=== PATIENT | female | born 1950 | race African-American/Black ===

== ENCOUNTER 2017-11-02 11:07 | Inpatient (IN) | payer OTHER, BC ==
[2017-11-02 11:26] VITALS: BMI 30.2
--- NOTE | 2017-11-02 11:51 | PDOC ---
History of Present Illness - General Chief Complaint: Hemoptysis Stated Complaint: COUGH, WHEEZING Time Seen by Provider: 11/02/17 11:50 - History of Present Illness Initial Comments: 11/02/17 12:18 67yo woman, active smoker, and PMH of hypertension who presents with several weeks of productive cough which for the last 3 reports blood streaked sputum and fever. She has had generalized malaise and weakness, and temperature yesterday was 102. She hasn't taken any medications for her symptoms or fever. Reports grandchildren sick early in the month with a "cold". No recent antibiotic use or hospitalization. PCP: Dr. Isaak Younger Past History - Past Medical History Allergies/Adverse Reactions: Allergies Allergy/AdvReac Type Severity Reaction Status Date / Time Penicillins Allergy Severe Difficulty Verified 11/02/17 11:22 Breathing Home Medications: Ambulatory Orders Amlodipine Bes/Olmesartan Med [Coni 10-20 mg Tablet] 1 each PO DAILY 04/10/13 COPD: No HTN: Yes - Suicide/Smoking/Psychosocial Hx Smoking Status: Yes Smoking History: Current every day smoker Have you smoked in the past 12 months: Yes Number of Cigarettes Smoked Daily: 10 Cigars Per Day: 0 Information on smoking cessation initiated: No Review of Systems - Review of Systems Constitutional: Yes: Fever, Malaise, Weakness HEENTM: No: Throat Pain Respiratory: Yes: Cough, Hemoptysis Cardiac (ROS): No: Chest Pain, Lightheadedness : No: Dysuria All Other Systems: Reviewed and Negative *Physical Exam - Vital Signs Last Vital Signs Temp Pulse Resp BP Pulse Ox 100.8 F H 127 H 21 108/55 95 11/02/17 11:22 11/02/17 11:22 11/02/17 11:22 11/02/17 11:22 11/02/17 11:22 - Physical Exam General Appearance: Yes: Appropriately Dressed, Mild Distress HEENT: positive: Normal ENT Inspection Neck: positive: Supple Respiratory/Chest: positive: Decreased Breath Sounds (at Left base) Cardiovascular: positive: Regular Rate, S1, S2, Tachycardia. negative: JVD Gastrointestinal/Abdominal: positive: Normal Bowel Sounds, Soft. negative: Tender Neurologic: positive: Fully Oriented, Alert Heart Score/ECG Review - ECG Impressions Comment:: 11/02/17 14:34 EKG: sinus tachycardia, rate 114, LAD, possible LAE, normal intervals (QTc 443) ED Treatment Course - LABORATORY CBC & Chemistry Diagram: 11/06/17 05:05 11/06/17 05:05 Medical Decision Making - Medical Decision Making 11/02/17 12:24 67yo woman who is an active smoker and presents with hemoptysis, fever, and generalized weakness concerning for sepsis 2/2 to PNA. Her presenting vitals are are fever to 100.8 and tachycardia. Will initiate Adult sepsis work-up and give 1g IV Tylenol for fever. 11/02/17 14:05 Patient has leukocytosis and lactic acidosis to 2.7. CXR revealed prominent L lower lobe consolidation. Will continue to hydrate, and repeat lactatic acid. Patient started on Levoquin for CAP treatment (has Penicillin allergy). Will contact Dr. Thao to admit patient. 11/02/17 14:41 Case d/w Dr. Thao. Patient will be admitted to M/S Patient noted to be satting at 79% on RA; O2 therapy increased to 4L NC. Will give duo nebs and reassess pSaO2. 11/02/17 16:11 Patient feel her breathing has improved. She's satting at 85% on 5L NC. Will give an additional 2x duo neb treatments. 11/06/17 09:42 *DC/Admit/Observation/Transfer Diagnosis at time of Disposition: Severe sepsis, Acute respiratory failure with hypoxemia CAP (community acquired pneumonia) Qualifiers: Laterality: left - Discharge Dispostion Condition at time of disposition: Stable Admit: Yes Decision to Admit order Date/Time: 11/02/17 14:32 Will be admitted by Dr. Thao to M/S - Referrals - Patient Instructions - Post Discharge Activity
[2017-11-02] MEDS ORDERED: SODIUM CHLORIDE 0.9% 1000 ML INFUS.BAG IV PRN (12:05)
[2017-11-02] MEDS ORDERED: SODIUM CHLORIDE 1,000 ML IV STA ×2 (12:05→16:24)
[2017-11-02] MEDS ORDERED: ACETAMINOPHEN 1000 MG/100 ML VIAL (NON FORMULARY) IVPB ONE (12:06)
[2017-11-02] MEDS ORDERED: ACETAMINOPHEN INJECTION 100 ML IVPB ONE (12:51)
[2017-11-02 12:53] LABS: VENOUS PH 7.43 (7.32-7.42)
[2017-11-02 12:54] LABS: VENOUS PC02 45.7 mmHg (38-52); VENOUS PO2 33.3 mmHg (28-48)
[2017-11-02 12:55] LABS: BASO % 0.2 % (0-2.0); EOS % 0.1 % (0-4.5); HEMATOCRIT 46.9 % (32.4-45.2); HEMOGLOBIN 15.2 GM/dL (10.7-15.3); LYMPH % 3.6 % (8-40); MCH 32.2 pg (25.7-33.7); MCHC 32.4 g/dl (32.0-36.0); MEAN CELL VOLUME 99.2 fl (80-96); MONO % 1.8 % (3.8-10.2); NEUT % 94.3 % (42.8-82.8); PLATELET COUNT 165 K/MM3 (134-434); RBC 4.73 M/mm3 (3.60-5.2); RDW 14.8 % (11.6-15.6); WHITE BLOOD COUNT 10.4 K/mm3 (4.0-10.0)
[2017-11-02 13:22] LABS: INR 1.4 (0.82-1.09); PROTHROMBIN TIME (PATIENT) 15.8 SEC (9.98-11.88)
--- NOTE | 2017-11-02 13:49 | PDOC ---
Attending Attestation - Resident Resident Name: Rakel Christopher - ED Attending Attestation I have performed the following: I have examined & evaluated the patient, The case was reviewed & discussed with the resident, I agree w/resident's findings & plan, Exceptions are as noted - HPI HPI: 11/02/17 13:43 67-year-old female with Hypertension presents with malaise and cough and worsening weakness. Febrile at triage. - Physicial Exam PE: 11/02/17 13:44 Fever, tachycardia, tachypnea decreased BS left base abd soft no edema neuro nonfocal - Critical Care Time Total Critical Care Time: 30 Critical Care Statement: The care of this patient involved high complexity decision making to prevent further life threatening deterioration of the patient 's condition and/or to evaluate & treat vital organ system(s) failure or risk of failure. - Medical Decision Making 11/02/17 13:48 Patient seen and evaluated with the resident. I agree with the overall evaluation, assessment, and management with the following summary of visit: 67-year-old female with history of hypertension and smoking presents with worsening malaise and cough with fever for 3 days. Febrile, tachycardic, tachypneic at triage. Decreased breath sounds at the left base concerning for pneumonia. Sepsis protocol initiated Tylenol for fever IV antibiotics for community-acquired pneumonia Admission Heart Score/ECG Review #1 ECG reviewed & interpreted by me at: 13:38 General ECG Interpretation: Sinus Rhythm (tachycardia at 114,), Normal Intervals , No acute ischemic changes (PRWP, inferior q waves, no acute st changes)
--- NOTE | 2017-11-02 14:35 | EKG ---
Test Reason : Blood Pressure : / mmHG Vent. Rate : 114 BPM Atrial Rate : 114 BPM P-R Int : 170 ms QRS Dur : 074 ms QT Int : 322 ms P-R-T Axes : 037 -87 047 degrees QTc Int : 443 ms SINUS TACHYCARDIA POSSIBLE LEFT ATRIAL ENLARGEMENT LEFT AXIS DEVIATION INFERIOR INFARCT , AGE UNDETERMINED ANTEROSEPTAL INFARCT (CITED ON OR BEFORE 24-JAN-2002) ABNORMAL ECG WHEN COMPARED WITH ECG OF 10-APR-2013 13:10, INFERIOR INFARCT IS NOW PRESENT QUESTIONABLE CHANGE IN INITIAL FORCES OF ANTERIOR LEADS Confirmed by CARLITO METCALF, HAMLET ([id number]) on 11/02/2017 2:35:04 PM Referred By: Confirmed By:HAMLET ESTEBAN MD
[2017-11-02] MEDS ORDERED: ALBUTEROL SO4 2.5/IPRATROPIUM 0.5 INH SOL 3 ML VIAL.NEB. NEB ONE ×2 (14:36→16:28)
[2017-11-02] MEDS: ALBUTEROL SO4 2.5/IPRATROPIUM 0.5 INH SOL 3 ML VIAL.NEB. NEB SCH ×5 (14:54→17:54)
[2017-11-02 14:55] LABS: ALBUMIN 2.7 g/dl (3.4-5.0); ANION GAP 11 (8-16); BILIRUBIN,TOTAL 1.8 mg/dL (0.2-1.0); BLOOD UREA NITROGEN 35 mg/dL (7-18); CALCIUM 8.3 mg/dL (8.5-10.1); CHLORIDE 102 mmol/L (98-107); CO2 29 mmol/L (21-32); CREATININE 1.8 mg/dL (0.55-1.02); GLUCOSE,RANDOM 117 mg/dL (74-106); POTASSIUM 3.7 mmol/L (3.5-5.1); SGOT/AST 20 U/L (15-37); SGPT/ALT 18 U/L (12-78); SODIUM 142 mmol/L (136-145); TOT PROT 5.7 g/dl (6.4-8.2)
[2017-11-02 14:57] LABS: ALK PHOS 45 U/L (45-117)
[2017-11-02] MEDS ORDERED: FLU VACCINE QUAD 60 MCG/0.5 ML (MDV 17-18) IM ONE (17:00)
[2017-11-02] MEDS ORDERED: ALBUTEROL SO4 2.5/IPRATROPIUM 0.5 INH SOL 3 ML VIAL.NEB. NEB PRN (21:22)
[2017-11-02] MEDS: HEPARIN NA (PORCINE) 5,000 UNITS/ML 1ML VIAL SQ SCH (22:44)
[2017-11-02] MEDS: DEXTROSE 5%-0.45% SALINE 1,000 ML IV SCH (22:45)
--- NOTE | 2017-11-02 23:07 | HP ---
Admitting History and Physical - Smoking History Smoking history: Current every day smoker Have you smoked in the past 12 months: Yes Aproximately how many cigarettes per day: 10 Home Medications - Allergies Allergies/Adverse Reactions: Allergies Allergy/AdvReac Type Severity Reaction Status Date / Time Penicillins Allergy Severe Difficulty Verified 11/02/17 11:22 Breathing - Home Medications Home Medications: Ambulatory Orders Amlodipine Bes/Olmesartan Med [Coni 10-20 mg Tablet] 1 each PO DAILY 04/10/13 Physical Examination Vital Signs: Vital Signs Temperature 98.6 F 11/02/17 17:00 Pulse Rate 99 H 11/02/17 17:00 Respiratory Rate 20 11/02/17 17:00 Blood Pressure 97/58 11/02/17 17:00 O2 Sat by Pulse Oximetry (%) 88 L 11/02/17 18:29 Labs: CBC, BMP 11/02/17 12:26 11/02/17 13:39
--- NOTE | 2017-11-03 08:20 | CONSULT ---
Consultation: REQUESTING PROVIDER: CONSULT REQUEST: We have been asked to medically evaluate this patient for PNA. HISTORY OF PRESENT ILLNESS: 65F w/ hx of HTN and PNA presenting with 3 days of hemoptysis. Pt reports that she was in her USOH until several weeks ago when she developed a productive cough of thick yellow sputum with rhinorrhea, nasal congestion, sore throat, and chest pain upon coughing. She reports that it persisted until a few days ago where it became blood-tinged as well. She endorses a fever of 102 yesterday , chills, malaise, generalized weakness, and sick contacts (reports that her grandchildren had a cold about a month ago). She denies recent travel, headaches , wheezing, SOB, abdominal pain, n/v/d/c, and dysuria. PMH: HTN, PNA PSH: denies Allergies: PCN- causes trouble breathing Social Hx: currently smokes 1 cig/day. At her peak, she smoked 3-4 cig/day. Drinks alcohol socially, denies drug use. She lives at home with family. 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 Fam Hx: non-contributory REVIEW OF SYSTEMS: CONSTITUTIONAL: Absent: loss of appetite, weight change present: fevers, chills, weakness, malaise HEENT: Absent: throat swelling, difficulty swallowing, mouth swelling, ear pain, eye pain, visual changes present: rhinorrhea, nasal congestion, throat pain CARDIOVASCULAR: Absent: chest pain, syncope, palpitations, irregular heart rate, lightheadedness , peripheral edema RESPIRATORY: Absent: shortness of breath, dyspnea with exertion, orthopnea, wheezing, stridor present: cough, hemoptysis GASTROINTESTINAL: Absent: abdominal pain, abdominal distension, nausea, vomiting, diarrhea, constipation, melena, hematochezia GENITOURINARY: Absent: dysuria, frequency, urgency, hesitancy, hematuria, flank pain, genital pain MUSCULOSKELETAL: Absent: myalgia, arthralgia, joint swelling, back pain, neck pain SKIN: Absent: rash, itching, pallor HEMATOLOGIC/IMMUNOLOGIC: Absent: easy bleeding, easy bruising, lymphadenopathy, frequent infections ENDOCRINE: Absent: unexplained weight gain, unexplained weight loss, heat intolerance, cold intolerance NEUROLOGIC: Absent: headache, focal weakness or paresthesias, dizziness, unsteady gait, seizure, mental status changes, bladder or bowel incontinence PSYCHIATRIC: Absent: anxiety, depression, suicidal or homicidal ideation, hallucinations. PHYSICAL EXAMINATION Vital Signs - 24 hr 11/02/17 11/02/17 11/02/17 11:22 12:30 14:14 Temperature 100.8 F H 101.2 F H Pulse Rate 127 H Pulse Rate [ Apical] Respiratory 21 Rate Blood Pressure 108/55 Blood Pressure [Right Arm] O2 Sat by Pulse 95 97 Oximetry (%) 11/02/17 11/02/17 11/02/17 14:55 15:10 16:08 Temperature 101 F H 98.9 F Pulse Rate Pulse Rate [ 105 H 103 H Apical] Respiratory 19 18 18 Rate Blood Pressure Blood Pressure 97/59 102/80 [Right Arm] O2 Sat by Pulse 70 L 90 L 90 L Oximetry (%) 11/02/17 11/02/17 11/02/17 17:00 18:29 22:00 Temperature 98.6 F 99.5 F Pulse Rate 99 H 105 H Pulse Rate [ Apical] Respiratory 20 18 Rate Blood Pressure 97/58 158/67 Blood Pressure [Right Arm] O2 Sat by Pulse 88 L 91 L Oximetry (%) 11/03/17 11/03/17 03:18 06:57 Temperature 98.9 F Pulse Rate 110 H Pulse Rate [ Apical] Respiratory 20 Rate Blood Pressure 125/63 Blood Pressure [Right Arm] O2 Sat by Pulse 90 L 90 L Oximetry (%) GENERAL: elderly female, lying in bed with significant cough, breathing on NC HEENT: nasal congestion NECK: Normal range of motion, supple without lymphadenopathy, JVD, or masses. LUNGS: diffuse rhonchi from persistent cough HEART: tachycardic, normal rhythm, normal S1 and S2 without murmur, rub or gallop. ABDOMEN: Soft, nontender, not distended, normoactive bowel sounds, no guarding, no rebound, no masses. No hepatomegaly or splenomegaly. MUSCULOSKELETAL: trace b/l LE edema NEUROLOGICAL: Cranial nerves II-XII intact. Normal speech. PSYCHIATRIC: Cooperative. Good eye contact. Appropriate mood and affect. SKIN: Warm, dry, normal turgor, no rashes or lesions noted. Laboratory Results - last 24 hr 11/02/17 11/02/17 11/02/17 12:26 12:26 12:26 WBC 10.4 H RBC 4.73 Hgb 15.2 D Hct 46.9 H D MCV 99.2 H MCH 32.2 MCHC 32.4 RDW 14.8 Plt Count 165 D MPV 9.0 D Neutrophils % 94.3 H D Lymphocytes % 3.6 L D Monocytes % 1.8 L D Eosinophils % 0.1 Basophils % 0.2 PT with INR 15.80 H INR 1.40 H D PTT (Actin FS) 40.0 H VBG pH 7.43 H POC VBG pCO2 45.7 POC VBG pO2 33.3 Mixed VBG HCO3 29.5 H Sodium Potassium Chloride Carbon Dioxide Anion Gap BUN Creatinine Creat Clearance w eGFR Random Glucose Lactic Acid Calcium Total Bilirubin AST ALT Alkaline Phosphatase Creatine Kinase Troponin I Total Protein Albumin Blood Type Antibody Screen 11/02/17 11/02/17 11/02/17 12:26 12:26 12:26 WBC RBC Hgb Hct MCV MCH MCHC RDW Plt Count MPV Neutrophils % Lymphocytes % Monocytes % Eosinophils % Basophils % PT with INR INR PTT (Actin FS) VBG pH POC VBG pCO2 POC VBG pO2 Mixed VBG HCO3 Sodium Cancelled Potassium Cancelled Chloride Cancelled Carbon Dioxide Cancelled Anion Gap Cancelled BUN Cancelled Creatinine Cancelled Creat Clearance w eGFR Cancelled Random Glucose Cancelled Lactic Acid 2.7 H* Calcium Cancelled Total Bilirubin Cancelled AST Cancelled ALT Cancelled Alkaline Phosphatase Cancelled Creatine Kinase Cancelled Troponin I Cancelled Total Protein Cancelled Albumin Cancelled Blood Type O POSITIVE Antibody Screen Negative 11/02/17 11/02/17 11/02/17 12:26 13:39 21:00 WBC RBC Hgb Hct MCV MCH MCHC RDW Plt Count MPV Neutrophils % Lymphocytes % Monocytes % Eosinophils % Basophils % PT with INR INR PTT (Actin FS) VBG pH POC VBG pCO2 POC VBG pO2 Mixed VBG HCO3 Sodium 142 Potassium 3.7 Chloride 102 Carbon Dioxide 29 Anion Gap 11 BUN 35 H D Creatinine 1.8 H D Creat Clearance w eGFR 27.90 Random Glucose 117 H Lactic Acid 1.9 Calcium 8.3 L Total Bilirubin 1.8 H D AST 20 D ALT 18 D Alkaline Phosphatase 45 D Creatine Kinase Troponin I 0.07 H 0.05 Total Protein 5.7 L Albumin 2.7 L Blood Type Antibody Screen Active Medications Generic Name Dose Route Start Last Admin Trade Name Freq PRN Reason Stop Dose Admin Albuterol/Ipratropium 1 amp 11/02/17 21:22 11/03/17 06:35 Duoneb - NEB 1 amp Q6H PRN Administration SHORTNESS OF BREATH Heparin Sodium (Porcine) 5,000 unit 11/02/17 22:00 11/02/17 22:44 Heparin - SQ 5,000 unit BID PRIYANK Administration Levofloxacin 500 mg in 100 mls @ 100 mls/hr 11/03/17 10:00 Levaquin 500 Mg Premixed Ivpb - IVPB DAILY PRIYANK Dextrose/Sodium Chloride 1,000 mls @ 100 mls/hr 11/02/17 21:30 11/02/17 22:45 D5-1/2ns - IV 100 mls/hr ASDIR PRIYANK Administration Sodium Chloride 820 ml 11/02/17 12:05 11/02/17 14:57 Normal Saline - IV 820 ml Q20M PRN Administration MAP<65mm Hg OR SBP <90 CXR: LLL consolidation, smaller SUSANA and R basilar infiltrate ASSESSMENT/PLAN: 65F w/ hx of HTN and PNA presenting with subacute productive cough and hemoptysis with preceding viral symptoms, found to have severe sepsis. #severe sepsis -fever, tachycardia, tachypnea, mild leukocytosis with left-shift, lactic acidosis -CXR shows multiple consolidations -likely 2/2 CAP -continue levaquin -f/u Bcx -sputum cx -trend wbc, Hgb -coags -duonebs standing standing and PRN -incentive spirometry -O2 via non-rebreather -guaifenesin if unable to expectorate -repeat CXR -CT chest to assess for pleural effusion -legionella, strep pneumo ag, influenza Rest of care per medical team Case discussed with attending, Dr. Manzanares. Dispo: We will continue to follow the patient. Thank you for this consultative opportunity. -Mo Walker MD PGY1 Pulmonology Team Visit type - Emergency Visit Emergency Visit: Yes ED Registration Date: 11/02/17 Care time: The patient presented to the Emergency Department on the above date and was hospitalized for further evaluation of their emergent condition. - New Patient This patient is new to me today: Yes Date on this admission: 11/03/17 - Critical Care Critical Care patient: No
[2017-11-03 08:21] LABS: HEMATOCRIT 42.4 % (32.4-45.2); HEMOGLOBIN 13.9 GM/dL (10.7-15.3); MCH 32.5 pg (25.7-33.7); MCHC 32.7 g/dl (32.0-36.0); MEAN CELL VOLUME 99.3 fl (80-96); MEAN PLT VOLUME 9.6 fl (7.5-11.1); PLATELET COUNT 140 K/MM3 (134-434); RBC 4.27 M/mm3 (3.60-5.2); RDW 14.4 % (11.6-15.6); WHITE BLOOD COUNT 7.1 K/mm3 (4.0-10.0)
[2017-11-03 08:49] LABS: CALCIUM 7.9 mg/dL (8.5-10.1); CHLORIDE 102 mmol/L (98-107); POTASSIUM 3.7 mmol/L (3.5-5.1); SODIUM 139 mmol/L (136-145)
[2017-11-03 08:58] LABS: ALBUMIN 2.6 g/dl (3.4-5.0); ALK PHOS 56 U/L (45-117); ANION GAP 9 (8-16); BILIRUBIN,TOTAL 1.7 mg/dL (0.2-1.0); BLOOD UREA NITROGEN 39 mg/dL (7-18); CO2 28 mmol/L (21-32); CREATININE 1.3 mg/dL (0.55-1.02); GLUCOSE,RANDOM 110 mg/dL (74-106); SGOT/AST 27 U/L (15-37); SGPT/ALT 22 U/L (12-78); TOT PROT 5.6 g/dl (6.4-8.2)
--- NOTE | 2017-11-03 09:41 | CON.CARD ---
Consult Consult Specialty:: Cardiology Referred by:: Dr. Thao Reason for Consultation:: Abnormal ECG - History of Present Illness Chief Complaint: Chills, cough and fever for 3 days History of Present Illness: 67F, HTN, smoker with 3-4 days of chills, fever and cough admitted for LLL PNA. Found to have ECG showing possible old IWMI and poor R wave progression. She denies prior cardiac hx. Denies exertional CP, ORTA, palps, syncope. No edema or PND. - History Source History Provided By: Patient, Medical Record - Past Medical History Cardio/Vascular: Yes: HTN Pulmonary: Yes: COPD Gastrointestinal: No: Ascites, Cancer, Constipation, Crohn's Disease, Diverticulitis, Diverticulosis, Esophageal Varices, Gastritis, GERD, GI Bleed, Hemorrhoids, Hiatal Hernia, Inflamatory Bowel Disease, Irritable Bowel Disease, Pancreatitis, Peptic Ulcer Disease, Ulcerative Colitis, Other Hepatobiliary: No: Cirrhosis, Cholelithiasis, Cholecystitis, Choledocholithiasis , Hepatitis A, Hepatitis B, Hepatitis C, Other Renal/: No: Renal Failure, Renal Inusuff, BPH, Cancer, Hematuria, Hemodialysis , Neurogenic Bladder, Renal Calculi, UTI, Other Heme/Onc: No: Anemia, B12 Deficiency, Bleeding Disorder, Cancer, Current Chemotherapy, Current Radiation Therapy, Hemochromatosis, Hypercoaguable State, Myeloproliferative Synd, Sickle Cell Disease, Sickle Cell Trait, Thrombocytopenia, Other Infectious Disease: No: AIDS, C-Diff, Herpes Zoster, HIV, MRSA, STD's, Tuberculosis, VREF, Other Psych: No: Addictions, Anxiety, Bipolar, Depression, Panic, Psychosis, Schizophrenia, Other Musculoskeletal: No: Bursitis, Chronic low back pain, Hemiparesis, Hemiplegia, Osteoarthritis, Paraplegia, Other Rheumatology: No: Fibromyalgia, Gout, Lupus, Rheumatoid Arthritis, Sarcoidosis, Vasculitis, Other ENT: No: Allergic Rhinitis, Sinusitis, Other - Smoking History Smoking history: Current every day smoker Have you smoked in the past 12 months: Yes Aproximately how many cigarettes per day: 10 - Social History Usual Living Arrangement: With Child ADL: Independent History of Recent Travel: No Home Medications - Allergies Allergies/Adverse Reactions: Allergies Allergy/AdvReac Type Severity Reaction Status Date / Time Penicillins Allergy Severe Difficulty Verified 11/02/17 11:22 Breathing - Home Medications Home Medications: Ambulatory Orders Amlodipine Bes/Olmesartan Med [Coni 10-20 mg Tablet] 1 each PO DAILY 04/10/13 Family Disease History - Family Disease History Family History: Unremarkable (non-contributory) Review of Systems Findings/Remarks: see HPI - Review of Systems Constitutional: reports: Chills, Malaise Eyes: reports: No Symptoms HENT: reports: No Symptoms Neck: reports: No Symptoms Cardiovascular: reports: No Symptoms Respiratory: reports: Cough, SOB Gastrointestinal: reports: No Symptoms Genitourinary: reports: No Symptoms Neurological: reports: No Symptoms Endocrine: reports: No Symptoms Hematology/Lymphatic: reports: No Symptoms Psychiatric: reports: No Symptoms - Risk Factors Known Risk Factors: Yes: Hypertension, Smoking Vital Signs: Vital Signs Temperature 98.9 F 11/03/17 06:57 Pulse Rate 110 H 11/03/17 06:57 Respiratory Rate 20 11/03/17 06:57 Blood Pressure 125/63 11/03/17 06:57 O2 Sat by Pulse Oximetry (%) 90 L 11/03/17 06:57 Constitutional: Yes: No Distress, Calm Eyes: Yes: Conjunctiva Clear, EOM Intact HENT: Yes: Atraumatic, Normocephalic Neck: Yes: Supple, Trachea Midline Respiratory: Yes: Other (rales at left base) Gastrointestinal: Yes: Soft Cardiovascular: Yes: Regular Rate and Rhythm JVD: No Carotid Bruit: No Heart Sounds: Yes: S1, S2 (RRR) Edema: No Neurological: Yes: Alert, Oriented ...Motor Strength: WNL - Other Data Labs, Other Data: CBC, BMP 11/03/17 06:45 11/03/17 06:45 INR, PTT INR 1.40 (0.82-1.09) H D 11/02/17 12:26 Troponin, BNP 11/02/17 11/02/17 11/02/17 12:26 13:39 21:00 Troponin I Cancelled 0.07 H 0.05 11/03/17 06:45 Troponin I 0.05 Troponin, BNP 11/02/17 11/02/17 11/02/17 12:26 13:39 21:00 Troponin I Cancelled 0.07 H 0.05 11/03/17 06:45 Troponin I 0.05 Laboratory Tests 11/02/17 11/02/17 11/02/17 12:26 13:39 21:00 WBC Hgb Plt Count INR 1.40 H D Sodium Potassium Creatinine Troponin I 0.07 H 0.05 11/03/17 11/03/17 11/03/17 06:45 06:45 06:45 WBC 7.1 D Hgb 13.9 Plt Count 140 INR Sodium 139 Potassium 3.7 Creatinine 1.3 H D Troponin I 0.05 Sinus, possible old IWMI. Cannot r/o anteroseptal OR- age indeterminate- poor R wave progression Echo: Pending Imaging - Results Chest X-ray: Image Reviewed (LLL infiltrate) EKG: Image Reviewed Problem List - Problems (1) CAP (community acquired pneumonia) Assessment/Plan: -follow cultures. Abx as per PMD. Supplimental O2. DVT prophylaxis Code(s): J18.9 - PNEUMONIA, UNSPECIFIED ORGANISM Qualifiers: Laterality: left (2) Hypertension Assessment/Plan: -currently controlled. Code(s): I10 - ESSENTIAL (PRIMARY) HYPERTENSION Qualifiers: Hypertension type: essential hypertension Qualified Code(s): I10 - Essential (primary) hypertension (3) Smoker Assessment/Plan: -smoking cessation counselling provided. Outpatient assessment for COPD. Code(s): F17.200 - NICOTINE DEPENDENCE, UNSPECIFIED, UNCOMPLICATED (4) Abnormal ECG Assessment/Plan: -Poor R wave progression is chronic. Cannot r/o old IWMI, will obtain echo for EF and wall motion assessment. Code(s): R94.31 - ABNORMAL ELECTROCARDIOGRAM [ECG] [EKG] (5) Elevation of cardiac enzymes Assessment/Plan: -Mild/borderline elevation in TnI likely due to sepsis. Do not suspect ACS. Check echo. ASA 81mg daily. Outpatient stress test when recovers from PNA. Code(s): R74.8 - ABNORMAL LEVELS OF OTHER SERUM ENZYMES (6) Severe sepsis Assessment/Plan: -Treatment of PNA as per PMD. IVF. Abx. Follow cultures. Code(s): A41.9 - SEPSIS, UNSPECIFIED ORGANISM; R65.20 - SEVERE SEPSIS WITHOUT SEPTIC SHOCK
[2017-11-03] MEDS: ASPIRIN 81 MG CHEWABLE TABLETS PO SCH (11:04)
[2017-11-03] MEDS: HEPARIN NA (PORCINE) 5,000 UNITS/ML 1ML VIAL SQ SCH (11:04)
--- NOTE | 2017-11-03 11:47 | PN ---
Teaching Attending Note Name of Resident: Mo Walker ATTENDING PHYSICIAN STATEMENT I saw and evaluated the patient. I reviewed the resident's note and discussed the case with the resident. I agree with the resident's findings and plan as documented. SUBJECTIVE:COUGH/FEVER/CHILLS/BLOOD STREAKED SPUTUM OBJECTIVE: SCATTERED BILATERAL RHONCHI LABS/MEDS/NOTES/IMAGES/MICRO REVIEWED ASSESSMENT AND PLAN: MULTI-LOBAR CAP/PCN ALLERGY ACTIVE SMOKER HTN PANCULTURE/INFLU SWAB/URINARY ANTIGENS ANTIBIOTICS NEEDS CT CHEST R/O PARA PNEUMONIC EFFUSION Anatoly RAUSCH MD
[2017-11-03] MEDS: DEXTROSE 5%-0.45% SALINE 1,000 ML IV SCH (14:50)
[2017-11-03] MEDS ORDERED: HEPARIN NA (PORCINE) 5,000 UNITS/ML 1ML VIAL IVPUSH PRN ×2 (15:23→17:53)
[2017-11-03] MEDS ORDERED: HEPARIN INFUSION - 25,000 UNITS/500 ML INFUS.BAG IVPB SCH (15:30)
[2017-11-03] MEDS: guaiFENesin 200 MG/10 ML 10 ML UNIT-DOSE CUPS PO PRN (22:18)
--- NOTE | 2017-11-03 23:14 | PN ---
Progress Note, Physician - Current Medication List Current Medications: Active Medications Albuterol/Ipratropium (Duoneb -) 1 amp NEB Q6H PRN PRN Reason: SHORTNESS OF BREATH Last Admin: 11/03/17 06:35 Dose: 1 amp Aspirin (Asa -) 81 mg PO DAILY PRIYANK Last Admin: 11/03/17 11:04 Dose: 81 mg Guaifenesin (Robitussin -) 10 ml PO Q6H PRN Last Admin: 11/03/17 22:18 Dose: 10 ml Heparin Sodium (Porcine) (Heparin -) 1,000 unit IVPUSH PRN PRN PRN Reason: Heparin Heparin Sodium (Porcine) (Heparin -) 5,000 unit IVPUSH PRN PRN Dextrose/Sodium Chloride (D5-1/2ns -) 1,000 mls @ 100 mls/hr IV ASDIR PRIYANK Last Admin: 11/03/17 14:50 Dose: 100 mls/hr Levofloxacin (Levaquin 250 Mg Premixed Ivpb -) 250 mg in 50 mls @ 50 mls/hr IVPB DAILY@1330 PRIYANK Last Admin: 11/03/17 14:49 Dose: 50 mls/hr Heparin Sodium/Dextrose (Heparin Infusion -) 25,000 units in 500 mls @ 20 mls/ hr IVPB TITR PRIYANK; 1,000 UNITS/HR PRN Reason: Protocol Last Admin: 11/03/17 19:35 Dose: 1,000 units/hr, 20 mls/hr Sodium Chloride (Normal Saline -) 820 ml IV Q20M PRN PRN Reason: MAP<65mm Hg OR SBP <90 Last Admin: 11/02/17 14:57 Dose: 820 ml - Objective Vital Signs: Vital Signs Temperature 100.1 F H 11/03/17 17:00 Pulse Rate 120 H 11/03/17 17:00 Respiratory Rate 18 11/03/17 17:00 Blood Pressure 126/96 11/03/17 17:00 O2 Sat by Pulse Oximetry (%) 93 L 11/03/17 09:00 Labs: CBC, BMP 11/03/17 06:45 11/03/17 06:45 INR, PTT INR 1.40 (0.82-1.09) H D 11/02/17 12:26
[2017-11-04] MEDS: guaiFENesin 200 MG/10 ML 10 ML UNIT-DOSE CUPS PO PRN ×2 (04:26→10:24)
[2017-11-04] MEDS: ASPIRIN 81 MG CHEWABLE TABLETS PO SCH (10:18)
--- NOTE | 2017-11-04 10:43 | PN ---
Progress Note (short form) - Note Progress Note: PULMONARY NURSE REPORTS PATIENT'S NON-COMPLIANCE WITH HIGHER CONCENTRATIONS OF FIO2 SITTING ON SIDE OF BED SHE REPORTS SUBJECTIVE IMPROVEMENT PT STARTED ON IV HEPARIN BY PRIMARY TEAM WITH R/O PE CTA PERFORMED LAST PM :NO PE/MULTILOBAR PNEUMONIA LEFT GREATER THAN RIGHT VSS/AFEBRILE/96% 4L/M O2 ANICTERIC LEFT BASE CRACKLES EXTENDING UP 1/4 LUNG FIELD RIGHT BASE RHONCHI S1S2 BS+ NO EDEMA NO NEW LABS TODAY IMAGES/MICRO/NOTES/MEDS REVIEWED MULTI-LOBAR CAP/PCN ALLERGY ACTIVE SMOKER HTN PANCULTURE/INFLU SWAB NEGATIVE THUS FAR /URINARY ANTIGENS PENDING ANTIBIOTICS STARTED AWAITING ID INPUT O2/SHORT COURSE IV STEROIDS/BRONCHODILATORS PRN WOULD DISCONTINUE IV HEPARIN IF DUPLEX IS NEGATIVE Anatoly RAUSCH MD
[2017-11-04] MEDS ORDERED: ALBUTEROL SO4 2.5/IPRATROPIUM 0.5 INH SOL 3 ML VIAL.NEB. NEB SCH (11:00)
--- NOTE | 2017-11-04 11:10 | PN ---
Progress Note, Physician History of Present Illness: seen and examined today in nad. states she is very tired but overall feeling improved since admission. - Current Medication List Current Medications: Active Medications Albuterol/Ipratropium (Duoneb -) 1 amp NEB Q6H [facility] Aspirin (Asa -) 81 mg PO DAILY PRIYANK Last Admin: 11/04/17 10:18 Dose: 81 mg Guaifenesin (Robitussin -) 10 ml PO Q6H PRN Last Admin: 11/04/17 10:24 Dose: 10 ml Heparin Sodium (Porcine) (Heparin -) 1,000 unit IVPUSH PRN PRN PRN Reason: Heparin Heparin Sodium (Porcine) (Heparin -) 5,000 unit IVPUSH PRN PRN Dextrose/Sodium Chloride (D5-1/2ns -) 1,000 mls @ 100 mls/hr IV ASDIR PRIYANK Last Admin: 11/03/17 14:50 Dose: 100 mls/hr Levofloxacin (Levaquin 250 Mg Premixed Ivpb -) 250 mg in 50 mls @ 50 mls/hr IVPB DAILY@1330 PRIYANK Last Admin: 11/03/17 14:49 Dose: 50 mls/hr Heparin Sodium/Dextrose (Heparin Infusion -) 25,000 units in 500 mls @ 20 mls/ hr IVPB TITR PRIYANK; 1,000 UNITS/HR PRN Reason: Protocol Last Admin: 11/03/17 19:35 Dose: 1,000 units/hr, 20 mls/hr Sodium Chloride (Normal Saline -) 820 ml IV Q20M PRN PRN Reason: MAP<65mm Hg OR SBP <90 Last Admin: 11/02/17 14:57 Dose: 820 ml - Objective Vital Signs: Vital Signs Temperature 98.3 F 11/04/17 09:00 Pulse Rate 106 H 11/04/17 09:55 Respiratory Rate 20 11/04/17 09:00 Blood Pressure 126/66 11/04/17 09:00 O2 Sat by Pulse Oximetry (%) 96 11/04/17 09:55 Constitutional: Yes: No Distress, Calm Eyes: Yes: Conjunctiva Clear, EOM Intact, PERRL HENT: Yes: Atraumatic, Normocephalic Neck: Yes: Supple, Trachea Midline Cardiovascular: Yes: Regular Rate and Rhythm, S1, S2. No: Bradycardia, Tachycardia, Pulse Irregular, Bruit, JVD, Gallop, Murmur, Rub, S3, S4, Varicosities Respiratory: Yes: Regular, On Nasal O2, Rhonchi. No: Rales, SOB, Wheezes Gastrointestinal: Yes: Normal Bowel Sounds, Soft. No: Distention, Tenderness Musculoskeletal: Yes: WNL Extremities: Yes: WNL Edema: No Peripheral Pulses WNL: Yes Peripheral Pulses: Left Doralis Pedis: 2+, Right Dorsalis Pedis: 2+ Integumentary: Yes: WNL Neurological: Yes: Alert, Oriented Psychiatric: Yes: Alert, Oriented Labs: CBC, BMP 11/03/17 06:45 11/03/17 06:45 INR, PTT INR 1.40 (0.82-1.09) H D 11/02/17 12:26 - ....Imaging Chest X-ray: Report Reviewed, Image Reviewed EKG: Report Reviewed, Image Reviewed Other: Report Reviewed, Image Reviewed (tele-nsr, apcs, brief episode PSVT self limited) Assessment/Plan 67 year old woman with a history of HTN, smoking admitted with with 3-4 days of chills, fever and cough and presumed PNA. SOB/cough/fever-likely due to PNA -severe Pulm HTN and Right sided cardiac dysfunction on echo thus pt was put on heparin gtt until PE ruled out -CTA chest showed no PE, awaiting LE doppler -if no DVT then would dc heparin gtt -LV systolic function was normal and no sig valvular abnl, pt is euvolemic thus would not diurese at this time -pulmonary evaluated -cont Abx Arrhythmia-likely self limited PSVT, does not appear to be afib or aflutter -asymptomatic -cont tele monitoring for now -if continued episodes of PSVT will consider bblocker or diltiazem -cont ASA for now, does not require full AC for this at this time unless clear afib or aflutter seen HTN-wnl without medications -monitor for now
[2017-11-04 14:33] LABS: URINE APPEARANCE SLCLOUDY; URINE BILIRUBIN NEGATIVE (NEGATIVE); URINE BLOOD NEGATIVE (NEGATIVE); URINE COLOR AMBER; URINE GLUCOSE (UA) NEGATIVE (NEGATIVE); URINE KETONE NEGATIVE (NEGATIVE); URINE LEUK ESTERASE NEGATIVE (NEGATIVE); URINE NITRITE NEGATIVE (NEGATIVE); URINE UROBILINOGEN 4.0 E.U/dl mg/dL (0.2-1.0)
[2017-11-04 15:15] LABS: URINE PROTEIN 1+ (NEGATIVE)
[2017-11-04 15:17] LABS: EPI CELLS RARE /HPF (FEW); GRANULAR CASTS 5 /lpf; URINE HYALINE CAST 1 /lpf
--- NOTE | 2017-11-04 16:25 | PN ---
Progress Note (short form) - Note Progress Note: ID Consult dictated Multilobar pneumococcal pneumonia Tobacco use/ exacerbation COPD Major PCN allergy ( throat swelling) Obtain sputum c/s Await blood c/s Continue Levaquin
[2017-11-04] MEDS: ALBUTEROL SO4 2.5/IPRATROPIUM 0.5 INH SOL 3 ML VIAL.NEB. NEB SCH (18:00)
--- NOTE | 2017-11-04 19:58 | PN ---
Progress Note, Physician History of Present Illness: Pt still w/ cough but looking slightly improved - Current Medication List Current Medications: Active Medications Albuterol/Ipratropium (Duoneb -) 1 amp NEB QIDR [facility] Last Admin: 11/04/17 18:00 Dose: 1 amp Aspirin (Asa -) 81 mg PO DAILY [facility] Last Admin: 11/04/17 10:18 Dose: 81 mg Guaifenesin (Robitussin -) 10 ml PO Q6H PRN Last Admin: 11/04/17 10:24 Dose: 10 ml Heparin Sodium (Porcine) (Heparin -) 5,000 unit SQ BID [facility] Levofloxacin (Levaquin 750 Mg Premixed Ivpb -) 750 mg in 150 mls @ 100 mls/hr IVPB DAILY [facility] Sodium Chloride (Normal Saline -) 820 ml IV Q20M PRN PRN Reason: MAP<65mm Hg OR SBP <90 Last Admin: 11/02/17 14:57 Dose: 820 ml - Objective Vital Signs: Vital Signs Temperature 98.8 F 11/04/17 17:00 Pulse Rate 74 11/04/17 17:00 Respiratory Rate 18 11/04/17 17:00 Blood Pressure 110/57 11/04/17 17:00 O2 Sat by Pulse Oximetry (%) 96 11/04/17 09:55 HENT: Yes: WNL Neck: Yes: WNL, Supple Cardiovascular: Yes: WNL, Regular Rate and Rhythm Respiratory: Yes: Rhonchi Gastrointestinal: Yes: WNL, Normal Bowel Sounds, Soft Edema: LLE: Trace, RLE: Trace Labs: CBC, BMP 11/03/17 06:45 11/03/17 06:45 INR, PTT INR 1.40 (0.82-1.09) H D 11/02/17 12:26 Problem List - Problems (1) Sepsis Assessment/Plan: Improved Will dc IV hydration CTA was negative for PE and IV heparin was dc'ed Code(s): A41.9 - SEPSIS, UNSPECIFIED ORGANISM (2) Respiratory failure Assessment/Plan: Due to multilobar pneumonia Cont IV levaquin Code(s): J96.90 - RESPIRATORY FAILURE, UNSP, UNSP W HYPOXIA OR HYPERCAPNIA (3) Troponin level elevated Assessment/Plan: Demand ischemia Code(s): R74.8 - ABNORMAL LEVELS OF OTHER SERUM ENZYMES
[2017-11-04] MEDS: HEPARIN NA (PORCINE) 5,000 UNITS/ML 1ML VIAL SQ SCH (21:04)
--- NOTE | 2017-11-04 21:21 | CONS ---
DATE OF CONSULTATION: 11/04/2017 The patient is a 67-year-old female who was evaluated for multilobar pneumonia and positive urine antigen for pneumococcus. She was admitted to the hospital on November 02, 2017, with a several day history of worsening cough and fever. She was noted to be tachycardic, tachypneic, and with an elevated white blood cell count. The patient was empirically treated with Levaquin. Legionella urine and pneumococcal antigen are now positive. Patient reports cough productive of blood-streaked sputum. She denies any chest pain or dyspnea. She has been febrile. She has been in contact with her grandchildren who have had respiratory tract illnesses. No recent hospitalizations or antibiotic therapy. She has not received influenza vaccines. She was unsure whether or not she received the pneumococcal vaccine in the past. PAST MEDICAL HISTORY: Positive for hypertension. ALLERGIES: PENICILLIN. PATIENT REPORTS THROAT SWELLING WITH PENICILLIN ON SEVERAL OCCASIONS. MEDICATIONS: Levaquin, heparin, aspirin. SOCIAL HISTORY: Positive for active tobacco use. No history of illicit drug use or alcohol abuse. HIV status is not known. REVIEW OF SYSTEMS: Neurologic: No loss of consciousness, seizure activity, focal weakness. Cardiac: Negative for chest pain or palpitations. Respiratory: As per HPI. Gastrointestinal: Negative for vomiting or diarrhea. Genitourinary: Negative for urinary tract infection. LABORATORY DATA: White count on admission was 10.4, presently 7.1, hematocrit 42.4, platelet count 140, BUN 39, creatinine 1.3. Urinalysis: 1 white cell. Chest x-ray shows a left-sided consolidation. CT scan of the chest shows bibasilar infiltrates, left greater than right. PHYSICAL EXAMINATION: General: She is supine, in bed. She is weak appearing. No acute respiratory distress. Vital signs: Temperature 98, blood pressure 115/71, pulse 78 and regular, respirations 18 per minute. HEENT: Sclerae anicteric. Oropharynx: Coated tongue. Heart: Sounds S1, S2. Lungs: Crepitations at the bases bilaterally. Abdomen: Obese, soft, nontender. Extremities: Positive for edema. Negative Gaye's sign. IMPRESSION: 1. Multilobar pneumococcal pneumonia. 2. Tobacco use/exacerbation of chronic obstructive pulmonary disease. 3. MAJOR PENICILLIN ALLERGY (THROAT SWELLING). PLAN: I will obtain a sputum culture and await blood cultures. Antibiotic coverage in this patient with a history of MAJOR PENICILLIN ALLERGY with Levaquin 750 mg IV piggy back every 24 hours. Continue bronchodilators. I will follow. Thank you for the kind referral. KIM CLINE M.D. [id number]
[2017-11-05] MEDS: ALBUTEROL SO4 2.5/IPRATROPIUM 0.5 INH SOL 3 ML VIAL.NEB. NEB SCH ×4 (00:25→18:17)
--- NOTE | 2017-11-05 08:46 | PN ---
Progress Note, Physician Chief Complaint: feeling "better" still appears fatigued Requiring supp O2 TELE: NSR with occasional APCS - Current Medication List Current Medications: Active Medications Albuterol/Ipratropium (Duoneb -) 1 amp NEB QIDR [facility] BEDS AT [facility] Last Admin: 11/05/17 06:17 Dose: 1 amp Aspirin (Asa -) 81 mg PO DAILY [facility]S [facility]CLUDE 234 BEDS AT THE [facility] Last Admin: 11/04/17 10:18 Dose: 81 mg Guaifenesin (Robitussin -) 10 ml PO Q6H PRN Last Admin: 11/04/17 10:24 Dose: 10 ml Heparin Sodium (Porcine) (Heparin -) 5,000 unit SQ BID [facility]CLUDE 234 BEDS AT THE [facility] Last Admin: 11/04/17 21:04 Dose: Not Given Levofloxacin (Levaquin 750 Mg Premixed Ivpb -) 750 mg in 150 mls @ 100 mls/hr IVPB DAILY COUNTS INCLUDE 234 BEDS AT THE [facility] Sodium Chloride (Normal Saline -) 820 ml IV Q20M PRN PRN Reason: MAP<65mm Hg OR SBP <90 Last Admin: 11/02/17 14:57 Dose: 820 ml - Objective Vital Signs: Vital Signs Temperature 98.2 F 11/05/17 05:00 Pulse Rate 72 11/05/17 05:00 Respiratory Rate 19 11/05/17 05:00 Blood Pressure 115/74 11/05/17 05:00 O2 Sat by Pulse Oximetry (%) 90 L 11/04/17 21:00 Constitutional: Yes: Calm Eyes: Yes: Conjunctiva Clear Cardiovascular: Yes: Regular Rate and Rhythm Respiratory: Yes: Other (scattered rhonchi, no wheezing. Coarse breath sounds) Gastrointestinal: Yes: Soft Edema: No Neurological: Yes: Alert Psychiatric: Yes: WNL Labs: CBC, BMP 11/03/17 06:45 INR, PTT INR 1.40 (0.82-1.09) H D 11/02/17 12:26 Microbiology 11/02/17 14:55 Nasopharyngeal Swab Influenza Types A,B Antigen (DEVIN) - Final 11/02/17 14:55 Nasopharyngeal Swab - Final 11/02/17 12:26 Blood - Peripheral Venous Blood Culture - Preliminary NO GROWTH OBTAINED AFTER 48 HOURS, INCUBATION TO CONTINUE FOR 3 DAYS. 11/02/17 12:26 Blood - Peripheral Venous Blood Culture - Preliminary NO GROWTH OBTAINED AFTER 48 HOURS, INCUBATION TO CONTINUE FOR 3 DAYS. Laboratory Tests 11/03/17 11/03/17 11/03/17 06:45 06:45 06:45 WBC Hgb 13.9 Plt Count 140 Potassium 3.7 Creatinine 1.3 H D Troponin I 0.05 11/05/17 08:10 WBC Pending Hgb Pending Plt Count Pending Potassium Creatinine Troponin I Problem List - Problems (1) CAP (community acquired pneumonia) Code(s): J18.9 - PNEUMONIA, UNSPECIFIED ORGANISM Qualifiers: Laterality: left (2) Hypertension Code(s): I10 - ESSENTIAL (PRIMARY) HYPERTENSION Qualifiers: Hypertension type: essential hypertension Qualified Code(s): I10 - Essential (primary) hypertension (3) Smoker Code(s): F17.200 - NICOTINE DEPENDENCE, UNSPECIFIED, UNCOMPLICATED (4) Abnormal ECG Code(s): R94.31 - ABNORMAL ELECTROCARDIOGRAM [ECG] [EKG] (5) Elevation of cardiac enzymes Code(s): R74.8 - ABNORMAL LEVELS OF OTHER SERUM ENZYMES (6) Severe sepsis Code(s): A41.9 - SEPSIS, UNSPECIFIED ORGANISM; R65.20 - SEVERE SEPSIS WITHOUT SEPTIC SHOCK Assessment/Plan IMP: Bilateral PNA COPD PHTN REC: -Cont. Abx as per PMD and Pulmonary, cultures remain negative -Supplimental O2 -DVT prophylaxis -PHTN is likely acute on chronic (Smoker with COPD, with acute b/l PNA): echo should be repeated as outpt. when acute pulmonary process resolved. -Continue tele for now as BP is at times low-normal and she is still relatively hypoxemic without O2.
[2017-11-05 08:47] LABS: HEMATOCRIT 43.4 % (32.4-45.2); HEMOGLOBIN 13.7 GM/dL (10.7-15.3); MCH 31.9 pg (25.7-33.7); MCHC 31.6 g/dl (32.0-36.0); MEAN CELL VOLUME 100.8 fl (80-96); MEAN PLT VOLUME 8.8 fl (7.5-11.1); PLATELET COUNT 167 K/MM3 (134-434); RBC 4.31 M/mm3 (3.60-5.2); RDW 15.1 % (11.6-15.6); WHITE BLOOD COUNT 4.2 K/mm3 (4.0-10.0)
[2017-11-05] MEDS: ASPIRIN 81 MG CHEWABLE TABLETS PO SCH (09:55)
[2017-11-05] MEDS: HEPARIN NA (PORCINE) 5,000 UNITS/ML 1ML VIAL SQ SCH ×2 (09:55→21:47)
--- NOTE | 2017-11-05 11:33 | PN ---
Progress Note (short form) - Note Progress Note: PULMONARY SITTING ON SIDE OF BED SHE REPORTS SUBJECTIVE IMPROVEMENT FAMILY PRESENT CTA PERFORMED LAST PM :NO PE/MULTILOBAR PNEUMONIA LEFT GREATER THAN RIGHT VSS/AFEBRILE/95% 3L/M O2 ANICTERIC LEFT BASE CRACKLES EXTENDING UP 1/4 LUNG FIELD RIGHT BASE RHONCHI S1S2 BS+ NO EDEMA WBC 4.2 IMAGES/MICRO/NOTES/MEDS REVIEWED MULTI-LOBAR CAP/PCN ALLERGY URINARY STREP AGS POSITIVE ACTIVE SMOKER HTN ANTIBIOTICS O2/SHORT COURSE IV STEROIDS/BRONCHODILATORS DVT PROPHYLAXSIS Anatoly RAUSCH MD
--- NOTE | 2017-11-05 14:46 | PN ---
Progress Note, Physician History of Present Illness: Supine in bed No c/o chest pain/ dyspnea Occasional cough Afebrile - Current Medication List Current Medications: Active Medications Albuterol/Ipratropium (Duoneb -) 1 amp NEB QIDR [facility] Last Admin: 11/05/17 11:42 Dose: 1 amp Aspirin (Asa -) 81 mg PO DAILY [facility] Last Admin: 11/05/17 09:55 Dose: 81 mg Guaifenesin (Robitussin -) 10 ml PO Q6H PRN Last Admin: 11/04/17 10:24 Dose: 10 ml Heparin Sodium (Porcine) (Heparin -) 5,000 unit SQ BID [facility] Last Admin: 11/05/17 09:55 Dose: 5,000 unit Levofloxacin (Levaquin 750 Mg Premixed Ivpb -) 750 mg in 150 mls @ 100 mls/hr IVPB DAILY [facility] Last Admin: 11/05/17 09:55 Dose: 100 mls/hr Sodium Chloride (Normal Saline -) 820 ml IV Q20M PRN PRN Reason: MAP<65mm Hg OR SBP <90 Last Admin: 11/02/17 14:57 Dose: 820 ml - Objective Vital Signs: Vital Signs Temperature 99.0 F 11/05/17 09:00 Pulse Rate 79 11/05/17 09:40 Respiratory Rate 20 11/05/17 09:00 Blood Pressure 99/44 11/05/17 09:00 O2 Sat by Pulse Oximetry (%) 95 11/05/17 10:19 Constitutional: Yes: No Distress Eyes: Yes: Conjunctiva Clear Cardiovascular: Yes: Regular Rate and Rhythm, S1, S2 Respiratory: Yes: Other (+ crepitations, bases) Gastrointestinal: Yes: Normal Bowel Sounds, Soft. No: Tenderness Edema: LLE: 1+, RLE: 1+ Labs: CBC, BMP 11/05/17 08:10 11/03/17 06:45 INR, PTT INR 1.40 (0.82-1.09) H D 11/02/17 12:26 Assessment/Plan Multilobar pneumococcal pneumonia PCN allergy Continue levaquin
--- NOTE | 2017-11-05 19:19 | PN ---
Progress Note (short form) - Note Progress Note: Medical coverage for Dr. Thao Subjective: The patient was seen and examined at the bedside, daughter at bedside. They are upset and would like to go home. Patient desaturates off O2. Will start IV steroids Current Medications Generic Name Dose Route Start Last Admin Trade Name Freq PRN Reason Stop Dose Admin Albuterol/Ipratropium 1 amp 11/04/17 12:41 11/05/17 18:17 Duoneb - NEB 1 amp QIDR PRIYANK Administration Aspirin 81 mg 11/03/17 10:00 11/05/17 09:55 Asa - PO 81 mg DAILY PRIYANK Administration Guaifenesin 10 ml 11/03/17 22:02 11/04/17 10:24 Robitussin - PO 10 ml Q6H PRN Administration Heparin Sodium (Porcine) 5,000 unit 11/04/17 22:00 11/05/17 09:55 Heparin - SQ 5,000 unit BID PRIYANK Administration Levofloxacin 750 mg in 150 mls @ 100 mls/hr 11/05/17 10:00 11/05/17 09:55 Levaquin 750 Mg Premixed Ivpb - IVPB 100 mls/hr DAILY PRIYANK Administration Methylprednisolone Sodium Succinate 40 mg 11/05/17 19:30 Solu-Medrol - IVPUSH Q8H-IV PRIYANK Sodium Chloride 820 ml 11/02/17 12:05 11/02/17 14:57 Normal Saline - IV 820 ml Q20M PRN Administration MAP<65mm Hg OR SBP <90 Objective: Vital Signs Period Temp Pulse Resp BP Sys/[place] Pulse Ox Last 24 Hr 98.2 F-99.0 F 72-88 18-20 93-115/44-74 90-95 Physical Exam: General: NAD, A&Ox3 Lungs: Decreased breath sounds at the bases Heart: RRR, S1S2 Abd: Soft, non-tender, non-distended. Normoactive bowel sounds Ext: Warm, well-perfused CBCD WBC 4.2 K/mm3 (4.0-10.0) D 11/05/17 08:10 RBC 4.31 M/mm3 (3.60-5.2) 11/05/17 08:10 Hgb 13.7 GM/dL (10.7-15.3) 11/05/17 08:10 Hct 43.4 % (32.4-45.2) 11/05/17 08:10 MCV 100.8 fl (80-96) H 11/05/17 08:10 MCHC 31.6 g/dl (32.0-36.0) L 11/05/17 08:10 RDW 15.1 % (11.6-15.6) 11/05/17 08:10 Plt Count 167 K/MM3 (134-434) 11/05/17 08:10 MPV 8.8 fl (7.5-11.1) 11/05/17 08:10 CMP Sodium 139 mmol/L (136-145) 11/03/17 06:45 Potassium 3.7 mmol/L (3.5-5.1) 11/03/17 06:45 Chloride 102 mmol/L (98-107) 11/03/17 06:45 Carbon Dioxide 28 mmol/L (21-32) 11/03/17 06:45 Anion Gap 9 (8-16) 11/03/17 06:45 BUN 39 mg/dL (7-18) H 11/03/17 06:45 Creatinine 1.3 mg/dL (0.55-1.02) H D 11/03/17 06:45 Creat Clearance w eGFR 40.61 (>60) 11/03/17 06:45 Random Glucose 110 mg/dL (74-106) H 11/03/17 06:45 Calcium 7.9 mg/dL (8.5-10.1) L 11/03/17 06:45 Total Bilirubin 1.7 mg/dL (0.2-1.0) H 11/03/17 06:45 AST 27 U/L (15-37) D 11/03/17 06:45 ALT 22 U/L (12-78) D 11/03/17 06:45 Alkaline Phosphatase 56 U/L (45-117) D 11/03/17 06:45 Total Protein 5.6 g/dl (6.4-8.2) L 11/03/17 06:45 Albumin 2.6 g/dl (3.4-5.0) L 11/03/17 06:45 CARDIAC ENZYMES Creatine Kinase Cancelled 11/02/17 12:26 Troponin I 0.05 ng/ml (0.00-0.05) 11/03/17 06:45 Microbiology 11/05/17 00:00 Sputum - Expectorated Gram Stain - Final 11/02/17 12:26 Blood - Peripheral Venous Blood Culture - Preliminary NO GROWTH OBTAINED AFTER 72 HOURS, INCUBATION TO CONTINUE FOR 2 DAYS. 11/02/17 12:26 Blood - Peripheral Venous Blood Culture - Preliminary NO GROWTH OBTAINED AFTER 72 HOURS, INCUBATION TO CONTINUE FOR 2 DAYS. 11/04/17 13:35 Urine For Antigen Detection Legionella Antigen - Final 11/04/17 13:35 Urine For Antigen Detection Streptococcus pneumoniae Antigen (M - Final 11/04/17 11:19 Serum Mycoplasma Antibody - Preliminary 11/02/17 14:55 Nasopharyngeal Swab Influenza Types A,B Antigen (DEVIN) - Final 11/02/17 14:55 Nasopharyngeal Swab - Final Assessment: This is a 67 year old female with PMHx of HTN who presented to the ED with malaise, cough, worsening weakness Plan: 1) Severe sepsis 2/2 multilobar pneumococcal pneumonia - Continue Levaquin - Appreciate ID consult 2) Acute hypoxic respiratory failure - O2 via nc prn - Patient non-compliant with O2, and desaturates into 60s - Chest CTA with no evidence of pulmonary embolisms - Start Solu-medrol IVPB - Appreciate pulmonary consult 3) Elevated troponin - Peaked at 0.07 - Likely due to sepsis - Continue ASA - Outpatient stress once recovered from pneumonia 4) HTN - Likely acute on chronic (Smoker with COPD, with acute b/l PNA) - ECHO should be repeated as outpt 5) SHADY - Likely 2/2 hypotension related to severe sepsis - Improving - Continue to monitor 6) F/E/N: - Regular diet - Monitor electrolytes 7) Prophylaxis: - OOB ambulating - Heparin 5,000u sq tid 8) Dispo: - Requires continued inpatient care - Discussed plan with daughter and patient - Will need pre/post O2 prior to discharge CODE STATUS: FULL CODE Visit type - Emergency Visit Emergency Visit: Yes ED Registration Date: 11/02/17 Care time: The patient presented to the Emergency Department on the above date and was hospitalized for further evaluation of their emergent condition. - New Patient This patient is new to me today: Yes Date on this admission: 11/05/17 - Critical Care Critical Care patient: No
[2017-11-05] MEDS: methylPREDNISolone NA SUCC 40 MG/1 ML VIAL IVPUSH SCH (19:49)
[2017-11-06] MEDS: ALBUTEROL SO4 2.5/IPRATROPIUM 0.5 INH SOL 3 ML VIAL.NEB. NEB SCH ×5 (00:09→23:35)
[2017-11-06] MEDS: methylPREDNISolone NA SUCC 40 MG/1 ML VIAL IVPUSH SCH ×2 (02:32→17:36)
[2017-11-06] MEDS: HEPARIN NA (PORCINE) 5,000 UNITS/ML 1ML VIAL SQ SCH ×3 (05:55→22:36)
[2017-11-06 07:11] LABS: HEMATOCRIT 43.1 % (32.4-45.2); HEMOGLOBIN 13.8 GM/dL (10.7-15.3); MCH 32.1 pg (25.7-33.7); MEAN CELL VOLUME 100.4 fl (80-96); MEAN PLT VOLUME 8.6 fl (7.5-11.1); PLATELET COUNT 184 K/MM3 (134-434); RBC 4.29 M/mm3 (3.60-5.2); RDW 14.8 % (11.6-15.6); WHITE BLOOD COUNT 5.7 K/mm3 (4.0-10.0)
[2017-11-06 07:34] LABS: ALBUMIN 2.2 g/dl (3.4-5.0); ANION GAP 4 (8-16); BILIRUBIN,TOTAL 0.8 mg/dL (0.2-1.0); BLOOD UREA NITROGEN 19 mg/dL (7-18); CALCIUM 8.2 mg/dL (8.5-10.1); CHLORIDE 102 mmol/L (98-107); CO2 32 mmol/L (21-32); CREATININE 0.6 mg/dL (0.55-1.02); GLUCOSE,RANDOM 122 mg/dL (74-106); POTASSIUM 4.8 mmol/L (3.5-5.1); SGOT/AST 34 U/L (15-37); SGPT/ALT 64 U/L (12-78); SODIUM 138 mmol/L (136-145); TOT PROT 5.6 g/dl (6.4-8.2)
[2017-11-06 07:36] LABS: ALK PHOS 52 U/L (45-117)
[2017-11-06] MEDS: ASPIRIN 81 MG CHEWABLE TABLETS PO SCH (09:25)
--- NOTE | 2017-11-06 09:57 | PN ---
Progress Note, Physician History of Present Illness: seen and examined today in [facility]. wants to go home. no new complaints. still coughing. - Current Medication List Current Medications: Active Medications Albuterol/Ipratropium (Duoneb -) 1 amp NEB QIDR [facility] Last Admin: 11/06/17 07:08 Dose: 1 amp Aspirin (Asa -) 81 mg PO DAILY [facility] Last Admin: 11/06/17 09:25 Dose: 81 mg Guaifenesin (Robitussin -) 10 ml PO Q6H PRN Last Admin: 11/04/17 10:24 Dose: 10 ml Heparin Sodium (Porcine) (Heparin -) 5,000 unit SQ TID [facility] Last Admin: 11/06/17 05:55 Dose: 5,000 unit Levofloxacin (Levaquin 750 Mg Premixed Ivpb -) 750 mg in 150 mls @ 100 mls/hr IVPB DAILY [facility] Last Admin: 11/06/17 09:25 Dose: 100 mls/hr Methylprednisolone Sodium Succinate (Solu-Medrol -) 40 mg IVPUSH Q8H-IV [facility] Last Admin: 11/06/17 09:25 Dose: 40 mg Sodium Chloride (Normal Saline -) 820 ml IV Q20M PRN PRN Reason: MAP<65mm Hg OR SBP <90 Last Admin: 11/02/17 14:57 Dose: 820 ml - Objective Vital Signs: Vital Signs Temperature 98.1 F 11/06/17 09:00 Pulse Rate 78 11/06/17 09:00 Respiratory Rate 20 11/06/17 09:00 Blood Pressure 112/68 11/06/17 09:00 O2 Sat by Pulse Oximetry (%) 95 11/06/17 09:00 Constitutional: Yes: No Distress, Calm Eyes: Yes: Conjunctiva Clear, EOM Intact, PERRL HENT: Yes: Atraumatic, Normocephalic, Tonsillar Exudate Neck: Yes: Trachea Midline Cardiovascular: Yes: Regular Rate and Rhythm, S1, S2. No: Bradycardia, Tachycardia, Pulse Irregular, Bruit, JVD, Gallop, Murmur, Rub, S3, S4, Varicosities Respiratory: Yes: Regular, Cough, Rhonchi. No: Rales, SOB, Wheezes Gastrointestinal: Yes: Normal Bowel Sounds, Soft. No: Distention, Tenderness Musculoskeletal: Yes: WNL Extremities: Yes: WNL Edema: No Peripheral Pulses WNL: Yes Peripheral Pulses: Left Doralis Pedis: 2+, Right Dorsalis Pedis: 2+ Neurological: Yes: Alert, Oriented Psychiatric: Yes: Alert, Oriented Labs: CBC, BMP 11/06/17 05:05 11/06/17 05:05 INR, PTT INR 1.40 (0.82-1.09) H D 11/02/17 12:26 - ....Imaging Chest X-ray: Report Reviewed, Image Reviewed EKG: Report Reviewed, Image Reviewed Other: Report Reviewed, Image Reviewed (tele-nsr, apcs, pvcs,) Assessment/Plan IMP: Bilateral PNA COPD PHTN PSVT REC: -no further PSVT on tele -Cont. Abx as per PMD and Pulmonary -Supplimental O2 as needed -PHTN is likely acute on chronic (Smoker with COPD, with acute b/l PNA): -echo should be repeated as outpt. when acute pulmonary process resolved. -no additional planned inpatient cardiac work up at this time
[2017-11-06] MEDS ORDERED: methylPREDNISolone NA SUCC 40 MG/1 ML VIAL IVPUSH SCH (10:00)
[2017-11-06 10:44] LABS: PLATELET ESTIMATE ADEQUATE
--- NOTE | 2017-11-06 10:45 | PN ---
Progress Note (short form) - Note Progress Note: PULMONARY RESTING COMFORTABLY SHE REPORTS SUBJECTIVE IMPROVEMENT VSS/AFEBRILE/95% 4L/M O2 ANICTERIC LEFT BASE CRACKLES EXTENDING UP 1/4 LUNG FIELD RIGHT BASE RHONCHI S1S2 BS+ NO EDEMA WBC 5.7 IMAGES/MICRO/NOTES/MEDS REVIEWED MULTI-LOBAR CAP/PCN ALLERGY URINARY STREP AGS POSITIVE ACTIVE SMOKER HTN ANTIBIOTICS O2/SHORT COURSE IV STEROIDS/BRONCHODILATORS DVT PROPHYLAXSIS Anatoly RAUSCH MD
--- NOTE | 2017-11-06 11:53 | PN ---
Progress Note, Physician History of Present Illness: Supine in bed No complaints offerred No c/o chest pain/ dyspnea Occasional cough Afebrile Tolerating antibiotics - Current Medication List Current Medications: Active Medications Albuterol/Ipratropium (Duoneb -) 1 amp NEB QIDR [facility] Last Admin: 11/06/17 11:00 Dose: 1 amp Aspirin (Asa -) 81 mg PO DAILY [facility] Last Admin: 11/06/17 09:25 Dose: 81 mg Guaifenesin (Robitussin -) 10 ml PO Q6H PRN Last Admin: 11/04/17 10:24 Dose: 10 ml Heparin Sodium (Porcine) (Heparin -) 5,000 unit SQ TID [facility] Last Admin: 11/06/17 05:55 Dose: 5,000 unit Levofloxacin (Levaquin 750 Mg Premixed Ivpb -) 750 mg in 150 mls @ 100 mls/hr IVPB DAILY [facility] Last Admin: 11/06/17 09:25 Dose: 100 mls/hr Methylprednisolone Sodium Succinate (Solu-Medrol -) 20 mg IVPUSH Q8H-IV [facility] Sodium Chloride (Normal Saline -) 820 ml IV Q20M PRN PRN Reason: MAP<65mm Hg OR SBP <90 Last Admin: 11/02/17 14:57 Dose: 820 ml - Objective Vital Signs: Vital Signs Temperature 98.1 F 11/06/17 09:00 Pulse Rate 79 11/06/17 11:06 Respiratory Rate 20 11/06/17 09:00 Blood Pressure 112/68 11/06/17 09:00 O2 Sat by Pulse Oximetry (%) 94 L 11/06/17 11:06 Constitutional: Yes: No Distress Eyes: Yes: Conjunctiva Clear Cardiovascular: Yes: Regular Rate and Rhythm, S1, S2 Respiratory: Yes: Other (+ crepitations L base) Gastrointestinal: Yes: Normal Bowel Sounds, Soft. No: Tenderness Edema: No Labs: CBC, BMP 11/06/17 05:05 11/06/17 05:05 INR, PTT INR 1.40 (0.82-1.09) H D 11/02/17 12:26 Assessment/Plan Multilobar pneumococcal pneumonia PCN allergy Day #5 levaquin May substitute po levaquin Complete 10-14d course Please re-consult as needed
--- NOTE | 2017-11-06 19:43 | PN ---
Progress Note, Physician - Current Medication List Current Medications: Active Medications Albuterol/Ipratropium (Duoneb -) 1 amp NEB QIDR [facility] Last Admin: 11/06/17 17:35 Dose: 1 amp Aspirin (Asa -) 81 mg PO DAILY [facility] Last Admin: 11/06/17 09:25 Dose: 81 mg Guaifenesin (Robitussin -) 10 ml PO Q6H PRN Last Admin: 11/04/17 10:24 Dose: 10 ml Heparin Sodium (Porcine) (Heparin -) 5,000 unit SQ TID [facility] Last Admin: 11/06/17 14:29 Dose: Not Given Levofloxacin (Levaquin 750 Mg Premixed Ivpb -) 750 mg in 150 mls @ 100 mls/hr IVPB DAILY [facility] Last Admin: 11/06/17 09:25 Dose: 100 mls/hr Methylprednisolone Sodium Succinate (Solu-Medrol -) 20 mg IVPUSH Q8H-IV [facility] Last Admin: 11/06/17 17:36 Dose: 20 mg Sodium Chloride (Normal Saline -) 820 ml IV Q20M PRN PRN Reason: MAP<65mm Hg OR SBP <90 Last Admin: 11/02/17 14:57 Dose: 820 ml - Objective Vital Signs: Vital Signs Temperature 98.0 F 11/06/17 18:00 Pulse Rate 83 11/06/17 18:21 Respiratory Rate 19 11/06/17 18:00 Blood Pressure 124/64 11/06/17 18:00 O2 Sat by Pulse Oximetry (%) 93 L 11/06/17 18:21 Labs: CBC, BMP 11/06/17 05:05 11/06/17 05:05 INR, PTT INR 1.40 (0.82-1.09) H D 11/02/17 12:26 Problem List - Problems (1) Sepsis Code(s): A41.9 - SEPSIS, UNSPECIFIED ORGANISM (2) Respiratory failure Code(s): J96.90 - RESPIRATORY FAILURE, UNSP, UNSP W HYPOXIA OR HYPERCAPNIA (3) Troponin level elevated Code(s): R74.8 - ABNORMAL LEVELS OF OTHER SERUM ENZYMES
[2017-11-07] MEDS: methylPREDNISolone NA SUCC 40 MG/1 ML VIAL IVPUSH SCH ×2 (01:57→09:12)
[2017-11-07] MEDS: ALBUTEROL SO4 2.5/IPRATROPIUM 0.5 INH SOL 3 ML VIAL.NEB. NEB SCH ×4 (06:35→23:28)
[2017-11-07] MEDS: HEPARIN NA (PORCINE) 5,000 UNITS/ML 1ML VIAL SQ SCH ×3 (06:55→21:20)
[2017-11-07 08:13] LABS: HEMATOCRIT 42.1 % (32.4-45.2); HEMOGLOBIN 13.5 GM/dL (10.7-15.3); MCH 32.4 pg (25.7-33.7); MEAN CELL VOLUME 101.2 fl (80-96); MEAN PLT VOLUME 8.7 fl (7.5-11.1); PLATELET COUNT 227 K/MM3 (134-434); RBC 4.17 M/mm3 (3.60-5.2); RDW 14.6 % (11.6-15.6); WHITE BLOOD COUNT 7.2 K/mm3 (4.0-10.0)
[2017-11-07] MEDS: ASPIRIN 81 MG CHEWABLE TABLETS PO SCH (09:11)
--- NOTE | 2017-11-07 12:35 | PN ---
Progress Note (short form) - Note Progress Note: PULMONARY RESTING COMFORTABLY SHE REPORTS SUBJECTIVE IMPROVEMENT SLIGHTLY CONFUSED WANTS TO BE DISCHARGED VSS/AFEBRILE/95% 4L/M O2 ANICTERIC LEFT BASE CRACKLES EXTENDING UP 1/4 LUNG FIELD RIGHT BASE RHONCHI S1S2 BS+ NO EDEMA WBC 7.2 IMAGES/MICRO/NOTES/MEDS REVIEWED MULTI-LOBAR CAP/PCN ALLERGY URINARY STREP AGS POSITIVE ACTIVE SMOKER HTN ANTIBIOTICS O2/BRONCHODILATORS DVT PROPHYLAXSIS STEROIDS DISCONTINUED Anatoly RAUSCH MD
--- NOTE | 2017-11-07 21:42 | PN ---
Progress Note, Physician History of Present Illness: Pt w/ O2 desaturating - Current Medication List Current Medications: Active Medications Albuterol/Ipratropium (Duoneb -) 1 amp NEB QIDR [facility] Last Admin: 11/07/17 17:21 Dose: Not Given Aspirin (Asa -) 81 mg PO DAILY [facility] Last Admin: 11/07/17 09:11 Dose: 81 mg Guaifenesin (Robitussin -) 10 ml PO Q6H PRN Last Admin: 11/04/17 10:24 Dose: 10 ml Heparin Sodium (Porcine) (Heparin -) 5,000 unit SQ TID [facility] Last Admin: 11/07/17 21:20 Dose: 5,000 unit Levofloxacin (Levaquin 750 Mg Premixed Ivpb -) 750 mg in 150 mls @ 100 mls/hr IVPB DAILY [facility] Last Admin: 11/07/17 09:11 Dose: 100 mls/hr Sodium Chloride (Normal Saline -) 820 ml IV Q20M PRN PRN Reason: MAP<65mm Hg OR SBP <90 Last Admin: 11/02/17 14:57 Dose: 820 ml - Objective Vital Signs: Vital Signs Temperature 97.9 F 11/07/17 14:34 Pulse Rate 76 11/07/17 14:34 Respiratory Rate 20 11/07/17 14:34 Blood Pressure 125/59 11/07/17 14:34 O2 Sat by Pulse Oximetry (%) 90 L 11/07/17 09:00 Constitutional: Yes: Well Nourished Neck: Yes: WNL, Supple Cardiovascular: Yes: WNL, Regular Rate and Rhythm Respiratory: Yes: Other (Scattered rhonchi) Gastrointestinal: Yes: WNL, Normal Bowel Sounds, Soft Labs: CBC, BMP 11/07/17 07:45 11/06/17 05:05 INR, PTT INR 1.40 (0.82-1.09) H D 11/02/17 12:26 Problem List - Problems (1) Respiratory failure Assessment/Plan: Due to multilobar pneumonia Cont IV levaquin/nebulizers Check pre and post O2 sat Steroids dc'ed Code(s): J96.90 - RESPIRATORY FAILURE, UNSP, UNSP W HYPOXIA OR HYPERCAPNIA (2) Sepsis Assessment/Plan: Improved Code(s): A41.9 - SEPSIS, UNSPECIFIED ORGANISM (3) Troponin level elevated Code(s): R74.8 - ABNORMAL LEVELS OF OTHER SERUM ENZYMES
[2017-11-08] MEDS: HEPARIN NA (PORCINE) 5,000 UNITS/ML 1ML VIAL SQ SCH ×3 (06:00→22:44)
[2017-11-08] MEDS: ALBUTEROL SO4 2.5/IPRATROPIUM 0.5 INH SOL 3 ML VIAL.NEB. NEB SCH ×3 (06:30→17:15)
[2017-11-08 07:42] LABS: HEMOGLOBIN 13.2 GM/dL (10.7-15.3); MCH 31.4 pg (25.7-33.7); MCHC 31.5 g/dl (32.0-36.0); MEAN CELL VOLUME 99.7 fl (80-96); MEAN PLT VOLUME 8.1 fl (7.5-11.1); PLATELET COUNT 272 K/MM3 (134-434); RBC 4.21 M/mm3 (3.60-5.2); RDW 14.8 % (11.6-15.6)
[2017-11-08] MEDS: ASPIRIN 81 MG CHEWABLE TABLETS PO SCH ×2 (10:00→10:07)
[2017-11-08] MEDS: guaiFENesin 200 MG/10 ML 10 ML UNIT-DOSE CUPS PO PRN (10:01)
--- NOTE | 2017-11-08 13:30 | PN ---
Progress Note, Physician History of Present Illness: PULMONARY ALERT,NAD,-CP,-SOB - Current Medication List Current Medications: Active Medications Albuterol/Ipratropium (Duoneb -) 1 amp NEB QIDR [facility] Last Admin: 11/08/17 11:38 Dose: Not Given Aspirin (Asa -) 81 mg PO DAILY [facility] Last Admin: 11/08/17 10:07 Dose: Not Given Guaifenesin (Robitussin -) 10 ml PO Q6H PRN Last Admin: 11/08/17 10:01 Dose: 10 ml Heparin Sodium (Porcine) (Heparin -) 5,000 unit SQ TID [facility] Last Admin: 11/08/17 06:00 Dose: 5,000 unit Levofloxacin (Levaquin 750 Mg Premixed Ivpb -) 750 mg in 150 mls @ 100 mls/hr IVPB DAILY [facility] Last Admin: 11/08/17 10:01 Dose: 100 mls/hr Sodium Chloride (Normal Saline -) 820 ml IV Q20M PRN PRN Reason: MAP<65mm Hg OR SBP <90 Last Admin: 11/02/17 14:57 Dose: 820 ml - Objective Vital Signs: Vital Signs Temperature 99.5 F 11/08/17 09:59 Pulse Rate 82 11/08/17 11:35 Respiratory Rate 20 11/08/17 09:59 Blood Pressure 124/67 11/08/17 09:59 O2 Sat by Pulse Oximetry (%) 92 L 11/08/17 11:35 Constitutional: Yes: Well Nourished, Calm Eyes: Yes: WNL HENT: Yes: WNL Neck: Yes: WNL Cardiovascular: Yes: Regular Rate and Rhythm, S1, S2 Respiratory: Yes: Diminished (DIMINISHED BS LEFT BASE) Gastrointestinal: Yes: Normal Bowel Sounds, Soft Extremities: Yes: WNL Edema: No Labs: CBC, BMP 11/08/17 07:15 11/06/17 05:05 INR, PTT INR 1.40 (0.82-1.09) H D 11/02/17 12:26 Problem List - Problems (1) Acute respiratory failure with hypoxemia Code(s): J96.01 - ACUTE RESPIRATORY FAILURE WITH HYPOXIA (2) CAP (community acquired pneumonia) Code(s): J18.9 - PNEUMONIA, UNSPECIFIED ORGANISM Qualifiers: Laterality: left (3) Hypertension Code(s): I10 - ESSENTIAL (PRIMARY) HYPERTENSION Qualifiers: Hypertension type: essential hypertension Qualified Code(s): I10 - Essential (primary) hypertension (4) Severe sepsis Code(s): A41.9 - SEPSIS, UNSPECIFIED ORGANISM; R65.20 - SEVERE SEPSIS WITHOUT SEPTIC SHOCK (5) Smoker Code(s): F17.200 - NICOTINE DEPENDENCE, UNSPECIFIED, UNCOMPLICATED Assessment/Plan MULTI-LOBAR CAP URINARY STREP AGS POSITIVE ACTIVE SMOKER LEFT PLEURAL EFFUSION HTN ANTIBIOTICS O2/BRONCHODILATORS DVT PROPHYLAXSIS THORACENTESIS DR DASH
--- NOTE | 2017-11-08 21:58 | PN ---
Progress Note, Physician History of Present Illness: Pt w/ O2 desaturation Pt still w/ productive cough - Current Medication List Current Medications: Active Medications Albuterol/Ipratropium (Duoneb -) 1 amp NEB QIDR [facility] Last Admin: 11/08/17 17:15 Dose: Not Given Aspirin (Asa -) 81 mg PO DAILY [facility] Last Admin: 11/08/17 10:07 Dose: Not Given Guaifenesin (Robitussin -) 10 ml PO Q6H PRN Last Admin: 11/08/17 10:01 Dose: 10 ml Heparin Sodium (Porcine) (Heparin -) 5,000 unit SQ TID [facility] Last Admin: 11/08/17 15:14 Dose: Not Given Levofloxacin (Levaquin 750 Mg Premixed Ivpb -) 750 mg in 150 mls @ 100 mls/hr IVPB DAILY [facility] Last Admin: 11/08/17 10:01 Dose: 100 mls/hr Sodium Chloride (Normal Saline -) 820 ml IV Q20M PRN PRN Reason: MAP<65mm Hg OR SBP <90 Last Admin: 11/02/17 14:57 Dose: 820 ml - Objective Vital Signs: Vital Signs Temperature 97.9 F 11/08/17 13:52 Pulse Rate 67 11/08/17 13:52 Respiratory Rate 20 11/08/17 09:59 Blood Pressure 117/63 11/08/17 13:52 O2 Sat by Pulse Oximetry (%) 92 L 11/08/17 11:35 Constitutional: Yes: Well Nourished Neck: Yes: WNL, Supple Cardiovascular: Yes: WNL, Regular Rate and Rhythm Respiratory: Yes: Other (Coarse bs B/L) Gastrointestinal: Yes: WNL, Normal Bowel Sounds, Soft Labs: CBC, BMP 11/08/17 07:15 11/06/17 05:05 INR, PTT INR 1.40 (0.82-1.09) H D 11/02/17 12:26 Problem List - Problems (1) Respiratory failure Assessment/Plan: Due to multilobar pneumonia Cont IV levaquin/nebulizers Pre and post O2 sat are 87% and 89% Await pulmonary recommendations Unable to do thoracentesis Repeat CXR showed pleural effusions Pt may need home O2 Code(s): J96.90 - RESPIRATORY FAILURE, UNSP, UNSP W HYPOXIA OR HYPERCAPNIA (2) Sepsis Assessment/Plan: Improved Code(s): A41.9 - SEPSIS, UNSPECIFIED ORGANISM (3) Troponin level elevated Code(s): R74.8 - ABNORMAL LEVELS OF OTHER SERUM ENZYMES
[2017-11-09] MEDS: ALBUTEROL SO4 2.5/IPRATROPIUM 0.5 INH SOL 3 ML VIAL.NEB. NEB SCH ×4 (00:27→23:21)
[2017-11-09] MEDS: HEPARIN NA (PORCINE) 5,000 UNITS/ML 1ML VIAL SQ SCH (06:45)
[2017-11-09 08:29] LABS: HEMATOCRIT 42.1 % (32.4-45.2); HEMOGLOBIN 13.5 GM/dL (10.7-15.3); MCH 31.8 pg (25.7-33.7); MCHC 32.1 g/dl (32.0-36.0); MEAN CELL VOLUME 99.2 fl (80-96); MEAN PLT VOLUME 7.7 fl (7.5-11.1); PLATELET COUNT 307 K/MM3 (134-434); RBC 4.24 M/mm3 (3.60-5.2); RDW 14.6 % (11.6-15.6)
[2017-11-09] MEDS: ASPIRIN 81 MG CHEWABLE TABLETS PO SCH ×2 (09:55→10:10)
--- NOTE | 2017-11-09 10:13 | PN ---
Progress Note, Physician Chief Complaint: hollis better - Current Medication List Current Medications: Active Medications Albuterol/Ipratropium (Duoneb -) 1 amp NEB QIDR [facility] Last Admin: 11/09/17 06:26 Dose: 1 amp Aspirin (Asa -) 81 mg PO DAILY [facility] Last Admin: 11/09/17 10:10 Dose: Not Given Guaifenesin (Robitussin -) 10 ml PO Q6H PRN Last Admin: 11/08/17 10:01 Dose: 10 ml Heparin Sodium (Porcine) (Heparin -) 5,000 unit SQ TID [facility] Last Admin: 11/09/17 06:45 Dose: 5,000 unit Levofloxacin (Levaquin 750 Mg Premixed Ivpb -) 750 mg in 150 mls @ 100 mls/hr IVPB DAILY [facility] Last Admin: 11/09/17 09:54 Dose: 100 mls/hr Sodium Chloride (Normal Saline -) 820 ml IV Q20M PRN PRN Reason: MAP<65mm Hg OR SBP <90 Last Admin: 11/02/17 14:57 Dose: 820 ml - Objective Vital Signs: Vital Signs Temperature 98.7 F 11/09/17 05:52 Pulse Rate 86 11/09/17 05:52 Respiratory Rate 20 11/09/17 05:52 Blood Pressure 126/68 11/09/17 05:52 O2 Sat by Pulse Oximetry (%) 98 11/08/17 21:00 Constitutional: Yes: No Distress Cardiovascular: Yes: Regular Rate and Rhythm Respiratory: Yes: Other (decreased breath sounds at bases) Gastrointestinal: Yes: Soft Edema: No Neurological: Yes: Alert, Oriented Labs: CBC, BMP 11/09/17 07:34 11/06/17 05:05 INR, PTT INR 1.40 (0.82-1.09) H D 11/02/17 12:26 Laboratory Tests 11/03/17 11/06/17 11/09/17 06:45 05:05 07:34 WBC 7.0 Hgb 13.5 Sodium 138 Potassium 4.8 D Creatinine 0.6 D Troponin I 0.05 Problem List - Problems (1) CAP (community acquired pneumonia) Code(s): J18.9 - PNEUMONIA, UNSPECIFIED ORGANISM Qualifiers: Laterality: left (2) Hypertension Code(s): I10 - ESSENTIAL (PRIMARY) HYPERTENSION Qualifiers: Hypertension type: essential hypertension Qualified Code(s): I10 - Essential (primary) hypertension (3) Smoker Code(s): F17.200 - NICOTINE DEPENDENCE, UNSPECIFIED, UNCOMPLICATED (4) Abnormal ECG Code(s): R94.31 - ABNORMAL ELECTROCARDIOGRAM [ECG] [EKG] (5) Elevation of cardiac enzymes Code(s): R74.8 - ABNORMAL LEVELS OF OTHER SERUM ENZYMES (6) Severe sepsis Code(s): A41.9 - SEPSIS, UNSPECIFIED ORGANISM; R65.20 - SEVERE SEPSIS WITHOUT SEPTIC SHOCK Assessment/Plan Assessment/Plan IMP: Bilateral PNA COPD PHTN PSVT REC: -no further PSVT on tele -Cont. Abx as per PMD and Pulmonary -Supplimental O2 as needed -PHTN is likely acute on chronic (Smoker with COPD, with acute b/l PNA): -echo should be repeated as outpt. when acute pulmonary process resolved. -no additional planned inpatient cardiac work up at this time
--- NOTE | 2017-11-09 14:38 | PN ---
Progress Note (short form) - Note Progress Note: Breathing feel ok today. Some dry cough. D/W IR that there is enough effusion for a thoracentesis to be performed. Procedure discussed in detail with the patient. She has agreed. Intake & Output 11/06/17 11/07/17 11/08/17 11/09/17 23:59 23:59 23:59 23:59 Intake Total 1060 1190 1172 1000 Balance 1060 1190 1172 1000 Last Vital Signs Temp Pulse Resp BP Pulse Ox 98.2 F 65 20 128/78 94 L 11/09/17 14:27 11/09/17 14:27 11/09/17 10:00 11/09/17 14:27 11/09/17 09:00 Active Medications Aspirin (Asa -) 81 mg PO DAILY [facility] Last Admin: 11/09/17 10:10 Dose: Not Given Guaifenesin (Robitussin -) 10 ml PO Q6H PRN Last Admin: 11/08/17 10:01 Dose: 10 ml Heparin Sodium (Porcine) (Heparin -) 5,000 unit SQ TID [facility] Last Admin: 11/09/17 06:45 Dose: 5,000 unit Levofloxacin (Levaquin 750 Mg Premixed Ivpb -) 750 mg in 150 mls @ 100 mls/hr IVPB DAILY [facility] Last Admin: 11/09/17 09:54 Dose: 100 mls/hr Sodium Chloride (Normal Saline -) 820 ml IV Q20M PRN PRN Reason: MAP<65mm Hg OR SBP <90 Last Admin: 11/02/17 14:57 Dose: 820 ml Constitutional: Yes: Awake and alert Eyes: Yes: WNL HENT: Yes: WNL Neck: Yes: WNL Cardiovascular: Yes: Regular Rate and Rhythm, S1, S2 Respiratory: Yes: DIMINISHED BS/RHONCHI AT THE LEFT BASE Gastrointestinal: Yes: Normal Bowel Sounds, Soft Extremities: Yes: WNL Edema: No Labs: Laboratory Results - last 24 hr 11/09/17 11/09/17 07:34 07:34 WBC 7.0 RBC 4.24 Hgb 13.5 Hct 42.1 MCV 99.2 H MCH 31.8 MCHC 32.1 RDW 14.6 Plt Count 307 MPV 7.7 PTT (Actin FS) 33.4 Problem List - Problems (1) Acute respiratory failure with hypoxemia Code(s): J96.01 - ACUTE RESPIRATORY FAILURE WITH HYPOXIA (2) CAP (community acquired pneumonia) Code(s): J18.9 - PNEUMONIA, UNSPECIFIED ORGANISM Qualifiers: Laterality: left (3) Hypertension Code(s): I10 - ESSENTIAL (PRIMARY) HYPERTENSION Qualifiers: Hypertension type: essential hypertension Qualified Code(s): I10 - Essential (primary) hypertension (4) Severe sepsis Code(s): A41.9 - SEPSIS, UNSPECIFIED ORGANISM; R65.20 - SEVERE SEPSIS WITHOUT SEPTIC SHOCK (5) Smoker Code(s): F17.200 - NICOTINE DEPENDENCE, UNSPECIFIED, UNCOMPLICATED Assessment/Plan MULTI-LOBAR CAP URINARY STREP AGS POSITIVE ACTIVE SMOKER LEFT PLEURAL EFFUSION HTN ANTIBIOTICS O2/BRONCHODILATORS DVT PROPHYLAXSIS PLAN FOR THORACENTESIS TOMORROW DR BARTHOLOMEW
--- NOTE | 2017-11-09 20:34 | PN ---
Progress Note, Physician - Current Medication List Current Medications: Active Medications Albuterol/Ipratropium (Duoneb -) 1 amp NEB QIDR [facility] Aspirin (Asa -) 81 mg PO DAILY [facility] Last Admin: 11/09/17 10:10 Dose: Not Given Guaifenesin (Robitussin -) 10 ml PO Q6H PRN Last Admin: 11/08/17 10:01 Dose: 10 ml Heparin Sodium (Porcine) (Heparin -) 5,000 unit SQ TID [facility] Last Admin: 11/09/17 06:45 Dose: 5,000 unit Levofloxacin (Levaquin 750 Mg Premixed Ivpb -) 750 mg in 150 mls @ 100 mls/hr IVPB DAILY [facility] Last Admin: 11/09/17 09:54 Dose: 100 mls/hr Sodium Chloride (Normal Saline -) 820 ml IV Q20M PRN PRN Reason: MAP<65mm Hg OR SBP <90 Last Admin: 11/02/17 14:57 Dose: 820 ml - Objective Vital Signs: Vital Signs Temperature 98.4 F 11/09/17 19:00 Pulse Rate 89 11/09/17 19:00 Respiratory Rate 20 11/09/17 19:00 Blood Pressure 145/84 11/09/17 19:00 O2 Sat by Pulse Oximetry (%) 94 L 11/09/17 09:00 Labs: CBC, BMP 11/09/17 07:34 11/06/17 05:05 INR, PTT INR 1.40 (0.82-1.09) H D 11/02/17 12:26 Problem List - Problems (1) Respiratory failure Code(s): J96.90 - RESPIRATORY FAILURE, UNSP, UNSP W HYPOXIA OR HYPERCAPNIA (2) Sepsis Code(s): A41.9 - SEPSIS, UNSPECIFIED ORGANISM (3) Troponin level elevated Code(s): R74.8 - ABNORMAL LEVELS OF OTHER SERUM ENZYMES
[2017-11-10] MEDS: ALBUTEROL SO4 2.5/IPRATROPIUM 0.5 INH SOL 3 ML VIAL.NEB. NEB SCH ×3 (06:34→18:40)
[2017-11-10 08:33] LABS: INR 1.14 (0.82-1.09); PROTHROMBIN TIME (PATIENT) 12.9 SEC (9.98-11.88)
[2017-11-10 12:36] LABS: PLEURAL FLUID APPEARANCE CLEAR; PLEURAL FLUID COLOR YELLOW; PLEURAL FLUID RBC 574 /mm3
[2017-11-10 13:03] LABS: TOTAL PROTEIN,PLEURAL FLUID 2.603
--- NOTE | 2017-11-10 13:33 | PN ---
Progress Note, Physician History of Present Illness: PULMONARY ALERT,RESP DISTRESS,S/P LEFT THORACENTESIS WITH REMOVAL 200cc SEROUS FLUID,PT TOLERATED PROCEDURE WELL W/O COMPLICATIONS,FLUID LIKELY TRANSUDATE,TP 2.6,LDH 128 - Current Medication List Current Medications: Active Medications Albuterol/Ipratropium (Duoneb -) 1 amp NEB QIDR [facility] Last Admin: 11/10/17 11:42 Dose: 1 amp Aspirin (Asa -) 81 mg PO DAILY [facility] Last Admin: 11/09/17 10:10 Dose: Not Given Guaifenesin (Robitussin -) 10 ml PO Q6H PRN Last Admin: 11/08/17 10:01 Dose: 10 ml Heparin Sodium (Porcine) (Heparin -) 5,000 unit SQ TID [facility] Last Admin: 11/09/17 06:45 Dose: 5,000 unit Levofloxacin (Levaquin 750 Mg Premixed Ivpb -) 750 mg in 150 mls @ 100 mls/hr IVPB DAILY [facility] Last Admin: 11/10/17 11:21 Dose: 100 mls/hr Sodium Chloride (Normal Saline -) 820 ml IV Q20M PRN PRN Reason: MAP<65mm Hg OR SBP <90 Last Admin: 11/02/17 14:57 Dose: 820 ml - Objective Vital Signs: Vital Signs Temperature 98.4 F 11/10/17 06:00 Pulse Rate 64 11/10/17 11:30 Respiratory Rate 18 11/10/17 11:30 Blood Pressure 128/76 11/10/17 11:30 O2 Sat by Pulse Oximetry (%) 93 L 11/10/17 09:00 Constitutional: Yes: Well Nourished, Calm Eyes: Yes: WNL HENT: Yes: WNL, Tonsillar Exudate Cardiovascular: Yes: Regular Rate and Rhythm, S1, S2 Respiratory: Yes: Diminished (CRACKLES LEFT BASE) Gastrointestinal: Yes: Normal Bowel Sounds, Soft Extremities: Yes: WNL Edema: No Labs: CBC, BMP INR, PTT INR 1.14 (0.82-1.09) 11/10/17 07:15 Problem List - Problems (1) Acute respiratory failure with hypoxemia Code(s): J96.01 - ACUTE RESPIRATORY FAILURE WITH HYPOXIA (2) CAP (community acquired pneumonia) Code(s): J18.9 - PNEUMONIA, UNSPECIFIED ORGANISM Qualifiers: Laterality: left (3) Hypertension Code(s): I10 - ESSENTIAL (PRIMARY) HYPERTENSION Qualifiers: Hypertension type: essential hypertension Qualified Code(s): I10 - Essential (primary) hypertension (4) Severe sepsis Code(s): A41.9 - SEPSIS, UNSPECIFIED ORGANISM; R65.20 - SEVERE SEPSIS WITHOUT SEPTIC SHOCK (5) Smoker Code(s): F17.200 - NICOTINE DEPENDENCE, UNSPECIFIED, UNCOMPLICATED Assessment/Plan MULTI-LOBAR CAP URINARY STREP AGS POSITIVE ACTIVE SMOKER LEFT PLEURAL EFFUSION LIKELY TRANSUDATE HTN ANTIBIOTICS O2/BRONCHODILATORS DVT PROPHYLAXSIS O2 SAT AT REST AND POST EXERCISE ON RA CHECK PLEURAL FLUID CYTOLOGY/CULTURES DR DASH
[2017-11-10 13:53] LABS: PLEURAL FLUID LYMPHOCYTES 15 %; PLEURAL FLUID MACROPHAGES 41 %; PLEURAL FLUID MESOTHELIAL 10 %; PLEURAL FLUID NEUTROPHIL 34 %
--- NOTE | 2017-11-10 16:44 | DS ---
Physical Examination Vital Signs: Vital Signs Temperature 98.4 F 11/10/17 14:04 Pulse Rate 106 H 11/10/17 14:04 Respiratory Rate 18 11/10/17 11:30 Blood Pressure 107/74 11/10/17 14:04 O2 Sat by Pulse Oximetry (%) 91 L 11/10/17 14:01 Labs: CBC, BMP 11/09/17 07:34 11/06/17 05:05 Discharge Summary Reason For Visit: COMMUNITY ACQUIRE PNEUMONIA; SEVERE SEPSIS Current Active Problems Acute respiratory failure with hypoxemia (Acute) CAP (community acquired pneumonia) (Acute) Acute renal failure Hypertension (Acute) Pleural effusion Procedures: Principal: Thoracentesis Hospital Course: Pt is a 67 y/o smoker w/ PMH significant for HTN who presented to the hospital and was treated for b/l pneumonia w/ IV levaquin. Pt was seen by pulmonary ad cardio. Pt also found to have acute renal insufficiency on admission wc improved after IV hydration. Pt had repeat CXR wc showed pleural effusion for wc she underwent thoracentesis and fluid looked like a transudate. Pt has requires O2 due to hypoxemia and needs to be on 4 liters O2 nasal canala at home. Condition: Stable - Instructions Diet, Activity, Other Instructions: 2 gram sodium diet See Dr Younger this week [phone] Patient needs home O2 Referrals: Isaak Younger MD [Primary Care Provider] - Disposition: HOME - Home Medications Comprehensive Discharge Medication List: Ambulatory Orders Amlodipine Bes/Olmesartan Med [Coni 10-20 mg Tablet] 1 each PO DAILY 04/10/13 Albuterol Sulfate Inhaler - [Ventolin Hfa Inhaler -] 1 - 2 inh PO QID #1 inhaler 11/10/17 Aspirin [ASA -] 81 mg PO DAILY #30 tab.chew 11/10/17 Guaifenesin [Robitussin -] 10 ml PO Q6H PRN #1 cup 11/10/17 Levofloxacin [Levaquin] 500 mg PO DAILY #7 tablet 11/10/17
[2017-11-10 19:17] VITALS: BP 114/72; PULSE 65; TEMP 98.6
--- NOTE | 2017-11-12 17:14 | PATH ---
Cytology Non-Gynecological Report Patient Name: ANNIKA GUTIERREZ [facility]. Rec. #: [id number] /Age/Gender: 1950 (Age: 67) / F Account: [id number] Location: [address] [place] [address]/[facility] Taken: 11/10/2017 Received: 11/10/2017 Reported: 11/12/2017 Physicians: Katherine Thao M.D. Specimen(s) Received A: LEFT PLEURAL FLUID B: LEFT PLEURAL FLUID Clinical History Pneumonia and pleural effusion Final Diagnosis A & B. PLEURAL FLUID, LEFT, THORACENTESIS: SATISFACTORY FOR EVALUATION. NO MALIGNANT CELLS IDENTIFIED. NUMEROUS MACROPHAGES AND REACTIVE MESOTHELIAL CELLS IN A BACKGROUND OF PROTEINACEOUS DEBRIS AND SCATTERED INFLAMMATORY CELLS PRESENT. Comment: Immunohistochemical stains performed at [place], [place] ([id number]) and interpreted at [facility] show numerous CD68+ macrophages. Scattered mesothelial cells are positive for D2-40 and calretinin. BREANN shows focal weak staining. MOC-31 and Nelson-Ep4 (high background staining) are negative. Proliferative marker Ki-67 highlights rare cells (low). The immunophenotype supports the above diagnosis. Electronically Signed Saadia Hoyt M.D. Gross Description A. Approximately 50 cc of yellow fluid received fixed in 50% alcohol. Two cytofunnels and one cellblock prepared. B. Approximately 50 cc of yellow fluid received fresh. Two cytofunnels and one cellblock prepared.
== END 2017-11-10 19:56 | disposition home or self-care (01) | DRG 871 ==
LOC: JER 11:07 → JERBED 14:33 → J5S 16:48 → J4W 11-03 02:23 → J5S 11-06 21:24
PROVIDERS: ADMIT Internal Medicine; ATTEND Internal Medicine
PROC: 0W9B3ZX Drainage of Left Pleural Cavity, Percutaneous Approach, Diagnostic (ICD-10-PCS; principal; 2017-11-10)
DX: A41.9 Sepsis, unspecified organism (principal); J96.01 Acute respiratory failure with hypoxia; J18.9 Pneumonia, unspecified organism; I47.1 Supraventricular tachycardia; N17.9 Acute kidney failure, unspecified; E87.2 Acidosis; R65.20 Severe sepsis without septic shock; F17.210 Nicotine dependence, cigarettes, uncomplicated; I10 Essential (primary) hypertension; J44.9 Chronic obstructive pulmonary disease, unspecified; Z88.0 Allergy status to penicillin; I27.20 Pulmonary hypertension, unspecified
CPT/HCPCS: 36415; 71010-TC; 71275-TC; 76604-TC; 76942; 80048; 80053; 81003; 81015; 82042; 82803; 82945; 83605; 83615; 84157; 84311; 84478; 84484; 85025; 85027; 85610; 85730; 86738; 86850; 86900; 86901; 87040; 87070; 87075; 87086; 87102; 87116; 87205; 87206; 87210; 87804; 87899; 88108; 88305-TC; 89051; 93005; 93010; 93306-TC; 93970-TC; 94640; 94761; 99285-25; J1644

== ENCOUNTER 2023-10-09 18:48 | Inpatient (IN) | payer OTHER, BC ==
[2023-10-09] MEDS ORDERED: NOREPINEPHRINE BITARTRATE/D5W 8 MG/250 ML BAG IVPB ONE (19:05)
[2023-10-09 19:10] LABS: ARTERIAL BLD GAS O2 SATURATION 52.1 % (95-98); ARTERIAL BLOOD GAS BASE EXCESS -16.4 mmol/L (-2-2); ARTERIAL BLOOD GAS PO2 51.2 mmHg (80-100)
[2023-10-09 19:12] LABS: ARTERIAL BLOOD GAS pH 6.802 (7.350-7.450)
[2023-10-09] MEDS ORDERED: MEROPENEM 1 GM in DEXTROSE 5%-WATER 100 ML IVPB ONE (19:31)
[2023-10-09] MEDS ORDERED: SODIUM CHLORIDE 0.9% 500 ML INFUS.BAG IV ONE (19:31)
[2023-10-09] MEDS ORDERED: VANCOMYCIN 1,000 MG in DEXTROSE 5%-WATER - 250 ML IVPB ONE (19:31)
[2023-10-09 19:42] LABS: HEMATOCRIT 35.7 % (32.4-45.2); HEMOGLOBIN 11.1 GM/dL (10.7-15.3); MCH 31.4 pg (25.7-33.7); MEAN CELL VOLUME 101.4 fl (80-96); PLATELET COUNT 234 10^3/uL (134-434); RBC 3.52 M/mm3 (3.60-5.2); RDW 16.2 % (11.6-15.6)
[2023-10-09] MEDS ORDERED: VASOPRESSIN 20 UNITS/ML VIAL IV ONE (19:44)
[2023-10-09] MEDS ORDERED: VASOPRESSIN 40 UNITS/100 ML BAG IV SCH (19:45)
[2023-10-09 19:46] LABS: ADD RBC MORPHOLOGY YES
[2023-10-09 19:53] LABS: INR 1.73 (0.83-1.09)
[2023-10-09 19:59] LABS: POTASSIUM 5.4 mmol/L (3.5-5.1)
[2023-10-09 20:01] LABS: ALBUMIN 2.3 g/dl (3.4-5.0); BLOOD UREA NITROGEN 32.2 mg/dL (7-18); CALCIUM 8.2 mg/dL (8.5-10.1)
[2023-10-09] MEDS ORDERED: MAG HYDROX/AL HYDROX/SIMETH 30 ML UNIT-DOSE CUP PO ONE (20:01)
[2023-10-09] MEDS ORDERED: FAMOTIDINE 20 MG/50 ML IVPB 20 MG/50 ML MG IVPB ONE (20:01)
[2023-10-09 20:04] LABS: CREATININE 2.9 mg/dL (0.55-1.3)
[2023-10-09 20:06] LABS: TOT PROT 4.6 g/dl (6.4-8.2)
[2023-10-09] MEDS ORDERED: LACTATED RINGERS SOLUTION 1,000 ML IV STA (20:15)
[2023-10-09 20:44] LABS: LACTIC ACID 14.6 mmol/L (0.4-2.0)
[2023-10-09] MEDS ORDERED: NOREPINEPHRINE BITARTRATE 8,000 MCG in SODIUM CHLORIDE 0.45% 992 ML IV SCH (21:45)
[2023-10-09 21:54] LABS: ANISOCYTOSIS 1+; MACROCYTOSIS 0; PLATELET ESTIMATE NORMAL
[2023-10-09] MEDS: CHLORHEXIDINE GLUCONATE 4% CLEANSER FOR DECOLONIZATION TP SCH (22:10)
[2023-10-09 22:56] LABS: CORRECTED WBC 1.79 K/mm3
[2023-10-09] MEDS: AZITHROMYCIN IVPB 500 MG/250 ML BAG IVPB SCH (23:25)
[2023-10-09] MEDS: MUPIROCIN 2% TOPICAL OINTMENT FOR DECOLONIZATION NS SCH (23:25)
[2023-10-09] MEDS: HEPARIN NA (PORCINE) 5,000 UNITS/ML 1ML VIAL SQ SCH (23:25)
[2023-10-10] MEDS ORDERED: VASOPRESSIN 40 UNITS/100 ML BAG IV SCH (00:15)
[2023-10-10] MEDS: NOREPINEPHRINE BITARTRATE/D5W 8 MG/250 ML BAG IVPB SCH ×2 (01:23→05:48)
[2023-10-10 01:31] LABS: HEMATOCRIT 36.9 % (32.4-45.2); HEMOGLOBIN 11.4 GM/dL (10.7-15.3); MCH 30.4 pg (25.7-33.7); MCHC 30.9 g/dl (32.0-36.0); MEAN CELL VOLUME 98.4 fl (80-96); MEAN PLT VOLUME 8.2 fl (7.5-11.1); PLATELET COUNT 246 10^3/uL (134-434); RBC 3.75 M/mm3 (3.60-5.2); RDW 15.2 % (11.6-15.6)
[2023-10-10 01:38] LABS: WHITE BLOOD COUNT 1.8 K/mm3 (4.0-10.0)
[2023-10-10 01:47] LABS: CHLORIDE 105 mmol/L (98-107); POTASSIUM 4.9 mmol/L (3.5-5.1); SODIUM 140 mmol/L (136-145)
[2023-10-10 01:50] LABS: ALBUMIN 2.3 g/dl (3.4-5.0); AMYLASE 392 U/L (25-115); ANION GAP 15 mmol/L (4-13); BLOOD UREA NITROGEN 34.4 mg/dL (7-18); CALCIUM 7.6 mg/dL (8.5-10.1); CO2 20 mmol/L (21-32); LIPASE 428 U/L (73-393); MAGNESIUM 1.9 mg/dL (1.8-2.4)
[2023-10-10 01:53] LABS: CREATININE 2.8 mg/dL (0.55-1.3); PHOSPHOROUS 7.9 mg/dL (2.5-4.9)
[2023-10-10 01:54] LABS: TOT PROT 4.7 g/dl (6.4-8.2)
[2023-10-10 01:55] LABS: BILIRUBIN,TOTAL 1.6 mg/dL (0.2-1)
[2023-10-10 01:56] LABS: ALBUMIN 2.4 g/dl (3.4-5.0); ALK PHOS 50 U/L (45-117)
[2023-10-10 01:59] LABS: BILIRUBIN,DIRECT 1.1 mg/dL (0.0-0.2)
[2023-10-10 02:01] LABS: BILIRUBIN,TOTAL 1.7 mg/dL (0.2-1); TOT PROT 4.8 g/dl (6.4-8.2)
[2023-10-10 02:23] LABS: GLUCOSE,RANDOM 48 mg/dL (74-106); SGOT/AST 3988 U/L (15-37); SGPT/ALT 2711 U/L (13-61)
[2023-10-10 02:23] LABS: LACTIC ACID 13.2 mmol/L (0.4-2.0)
[2023-10-10 02:51] LABS: ARTERIAL BLD GAS O2 SATURATION 97.1 % (95-98); ARTERIAL BLOOD GAS BASE EXCESS -11.3 mmol/L (-2-2); ARTERIAL BLOOD GAS PO2 111.5 mmHg (80-100); ARTERIAL BLOOD GAS pH 7.204 (7.350-7.450)
[2023-10-10] MEDS ORDERED: DEXTROSE 50%-WATER - 25 GM/50 ML VIAL IVPUSH ONE (03:45)
[2023-10-10] MEDS ORDERED: SODIUM BICARBONATE 8.4% 50 MEQ/50 ML DISP.SYRIN IVPUSH ONE (03:45)
[2023-10-10 03:57] VITALS: BMI 20.9
[2023-10-10] MEDS ORDERED: SODIUM BICARBONATE 8.4% 50 MEQ/50 ML DISP.SYRIN ONE (04:01)
[2023-10-10] MEDS ORDERED: DEXTROSE 50%-WATER 25 GM/50 ML DISP.SYRIN ONE (04:01)
[2023-10-10] MEDS ORDERED: EPINEPHrine 1:1,000 1,000 MCG in DEXTROSE 5%-WATER - 249 ML IVPB SCH (04:15)
[2023-10-10] MEDS: HEPARIN NA (PORCINE) 5,000 UNITS/ML 1ML VIAL SQ SCH ×3 (06:00→21:23)
[2023-10-10 06:46] LABS: ARTERIAL BLD GAS O2 SATURATION 96.8 % (95-98); ARTERIAL BLOOD GAS BASE EXCESS -11.8 mmol/L (-2-2); ARTERIAL BLOOD GAS PO2 106.6 mmHg (80-100); ARTERIAL BLOOD GAS pH 7.202 (7.350-7.450)
[2023-10-10 06:49] LABS: VENT MODE A/C; VENT RATE 18
[2023-10-10 07:46] LABS: ANISOCYTOSIS 1+; CORRECTED WBC 1.38 K/mm3; MACROCYTOSIS 1+; OVALOCYTE 1+
[2023-10-10 08:01] VITALS: RESP 18
[2023-10-10] MEDS: HYDROCORTISONE SOD SUCCINATE 100 MG/2 ML VIAL IVPB SCH ×5 (09:00→20:56)
[2023-10-10] MEDS: PANTOPRAZOLE SODIUM 40 MG VIAL IVPUSH SCH ×2 (09:15→21:23)
[2023-10-10] MEDS: AZITHROMYCIN IVPB 500 MG/250 ML BAG IVPB SCH (09:16)
[2023-10-10] MEDS: MUPIROCIN 2% TOPICAL OINTMENT FOR DECOLONIZATION NS SCH (09:28)
[2023-10-10] MEDS ORDERED: SODIUM CHLORIDE 1,000 ML IV STA (09:48)
[2023-10-10] MEDS ORDERED: PANTOPRAZOLE SODIUM 40 MG VIAL IVPUSH SCH (10:00)
[2023-10-10] MEDS ORDERED: CEFTRIAXONE 1 GM in DEXTROSE 5%-WATER - 50 ML IVPB SCH (10:00)
[2023-10-10 10:58] LABS: HEMATOCRIT 36.5 % (32.4-45.2); HEMOGLOBIN 10.9 GM/dL (10.7-15.3); MCH 29.9 pg (25.7-33.7); MCHC 29.9 g/dl (32.0-36.0); MEAN PLT VOLUME 8.4 fl (7.5-11.1); PLATELET COUNT 228 10^3/uL (134-434); RBC 3.65 M/mm3 (3.60-5.2); RDW 14.9 % (11.6-15.6)
[2023-10-10 11:03] LABS: WHITE BLOOD COUNT 1.7 K/mm3 (4.0-10.0)
[2023-10-10 11:05] LABS: INR 2.8 (0.83-1.09); PROTHROMBIN TIME (PATIENT) 32.2 SEC (9.7-13.0)
[2023-10-10 11:07] LABS: ACTIVATED PTT 36.9 SECONDS (25.2-36.5)
[2023-10-10 11:12] LABS: POTASSIUM 4.2 mmol/L (3.5-5.1)
[2023-10-10 11:15] LABS: ALBUMIN 2.1 g/dl (3.4-5.0); BLOOD UREA NITROGEN 41.6 mg/dL (7-18); CALCIUM 7.8 mg/dL (8.5-10.1); MAGNESIUM 1.9 mg/dL (1.8-2.4)
[2023-10-10 11:19] LABS: CREATININE 3.3 mg/dL (0.55-1.3); PHOSPHOROUS 7.5 mg/dL (2.5-4.9)
[2023-10-10 11:20] LABS: BILIRUBIN,TOTAL 1.7 mg/dL (0.2-1); TOT PROT 4.4 g/dl (6.4-8.2)
[2023-10-10 11:29] LABS: ANISOCYTOSIS 1+; CORRECTED WBC 1.47 K/mm3; MACROCYTOSIS 0; OVALOCYTE 1+
[2023-10-10 11:35] LABS: LACTIC ACID 13.7 mmol/L (0.4-2.0)
[2023-10-10 18:10] LABS: EPI CELLS 8 /uL (0-25.1); HYALINE CASTS 1 /uL (0-3.1); PH,URINE 5.5 (5.0-8.0); URINE APPEARANCE CLOUDY; URINE BACTERIA 14 /uL (0-1359); URINE BILIRUBIN NEGATIVE (NEGATIVE); URINE COLOR YELLOW; URINE GLUCOSE (UA) NEGATIVE (NEGATIVE); URINE KETONE NEGATIVE (NEGATIVE); URINE LEUK ESTERASE NEGATIVE (NEGATIVE); URINE NITRITE NEGATIVE (NEGATIVE); URINE PROTEIN 2+ (NEGATIVE); URINE WBC 19 /uL (0-25.8)
[2023-10-10 20:24] VITALS: TEMP 94.4
[2023-10-10 21:21] VITALS: BP 51/40; PULSE 48
[2023-10-10] MEDS: CHLORHEXIDINE GLUCONATE 4% CLEANSER FOR DECOLONIZATION TP SCH (21:23)
== END 2023-10-10 23:45 | disposition expired | DRG 871 ==
LOC: JER 18:48 → JERBED 19:35 → JICU 21:21
PROVIDERS: ADMIT Internal Medicine Pulmonary Disease; ATTEND Internal Medicine Pulmonary Disease
PROC: 5A1945Z Respiratory Ventilation, 24-96 Consecutive Hours (ICD-10-PCS; principal; 2023-10-09)
PROC: 5A12012 Performance of Cardiac Output, Single, Manual (ICD-10-PCS; 2023-10-09)
PROC: 05HM33Z Insertion of Infusion Device into Right Internal Jugular Vein, Percutaneous Approach (ICD-10-PCS; 2023-10-10)
PROC: B543ZZA Ultrasonography of Right Jugular Veins, Guidance (ICD-10-PCS; 2023-10-10)
PROC: 4A133B1 Monitoring of Arterial Pressure, Peripheral, Percutaneous Approach (ICD-10-PCS; 2023-10-10)
PROC: 4A133J1 Monitoring of Arterial Pulse, Peripheral, Percutaneous Approach (ICD-10-PCS; 2023-10-10)
DX: A41.89 Other specified sepsis (principal); J18.9 Pneumonia, unspecified organism; J96.01 Acute respiratory failure with hypoxia; R65.21 Severe sepsis with septic shock; J96.02 Acute respiratory failure with hypercapnia; K72.00 Acute and subacute hepatic failure without coma; E87.29 Other acidosis; J44.1 Chronic obstructive pulmonary disease with (acute) exacerbation; J44.0 Chronic obstructive pulmonary disease with (acute) lower respiratory infection; N17.9 Acute kidney failure, unspecified; D68.9 Coagulation defect, unspecified; I47.10 Supraventricular tachycardia, unspecified; I10 Essential (primary) hypertension; R57.0 Cardiogenic shock; E87.5 Hyperkalemia
CPT/HCPCS: 0241U-QW; 36415; 36600; 71045-TC-FY; 74018-TC-FY; 80048; 80053; 80076; 81003; 82150; 82308; 82436; 82550; 82553; 82570; 82803; 82962; 83036; 83605; 83690; 83735; 83880; 84100; 84133; 84300; 84484; 85025; 85610; 85730; 86140; 86316; 86850; 86900; 86901; 87040; 93005; 93010; 99291; J1250; J1644; J3490